=== PATIENT | female | born 1945 | race Caucasian/White ===

== ENCOUNTER 2016-11-21 08:21 | Outpatient (CLI) ==
[2016-09-12 13:08] VITALS: BMI 40.5
--- NOTE | 2016-11-22 12:20 | MAMMO ---
EXAM: Digital screening mammogram HISTORY: Screening COMPARISON: 01/17/2015 FINDINGS: Digital MLO and CC views of the right and left breast were performed. There are scatter ed fibroglandular densities. There are clustered left breast nodules seen on the CC view laterally approximately 9 cm from the nipple, not visible on previous examinations. There is no evidence for m ass, asymmetry, distortion, or suspicious calcifications in the right breast. IMPRESSION: 1. Left breast nodules. Diagnostic mammogram and possible ultrasound recommended for further evalu ation. 2. Negative right breast mammogram. BIRADS category 0, incomplete
== END 2016-11-21 08:22 | disposition home or self-care (01) ==
LOC: RAD 08:21
PROVIDERS: ATTEND Internal Medicine
DX: Z12.31 Encounter for screening mammogram for malignant neoplasm of breast (principal); R06.02 Shortness of breath

== ENCOUNTER 2016-11-27 08:04 | Outpatient (CLI) ==
[2016-09-12 13:08] VITALS: BMI 40.5
--- NOTE | 2016-11-27 10:03 | MAMMO ---
EXAM: Digital left diagnostic mammogram and ultrasound HISTORY: Nodular density seen in the lateral breast on CC image COMPARISON: Mammogram 11/21/2016 and 01/17/2059 FINDINGS: Two spot compression views of the the left breast were performed digitally and demonstrat e scattered fibroglandular breast density (25 - 50%). The previously identified nodular densities in the left lateral breast are redemonstrated on CC spot compression images and are not definitively i dentified on lateral view. Dedicated left breast diagnostic ultrasound were obtained. In the left breast at 1 o'clock 5-6 cm f rom the nipple there is a 0.3 x 0.2 cm hypoechoic ovoid nodule with no internal color Doppler flow. This demonstrates minimal internal echogenicities. In the left breast at 3 o'clock 6 cm from the n ipple there is a mildly complex hypoechoic lesion measuring 0.2 cm in diameter with immediate adjace nt hypoechoic ovoid complex lesion measuring 0.4 x 0.3 cm with no internal color Doppler flow in eit her lesion identified. There is an additional ovoid oblong hypoechoic structure measuring 0.5 x 0.3 x 0.7 cm with no internal color Doppler flow. IMPRESSION: Nodular densities seen on spot compression views in the lateral left breast in conjunct ion with a complex hypoechoic lesions with no internal color Doppler flow are suggestive of complex cysts. RECOMMENDATION: 6-month follow-up left diagnostic mammogram and potential ultrasound BIRADS category III: Probable benign findings
--- NOTE | 2016-11-27 10:08 | US ---
EXAM: Digital left diagnostic mammogram and ultrasound HISTORY: Nodular density seen in the lateral breast on CC image COMPARISON: Mammogram 11/21/2016 and 01/17/2059 FINDINGS: Two spot compression views of the left breast were performed digitally and demonstrate sc attered fibroglandular breast density (25 - 50%). The previously identified nodular densities in the left lateral breast are redemonstrated on CC spot compression images and are not definitively ident ified on lateral view. Dedicated left breast diagnostic ultrasound were obtained. In the left breast at 1 o'clock 5-6 cm f rom the nipple there is a 0.3 x 0.2 cm hypoechoic ovoid nodule with no internal color Doppler flow. This demonstrates minimal internal echogenicities. In the left breast at 3 o'clock 6 cm from the n ipple there is a mildly complex hypoechoic lesion measuring 0.2 cm in diameter with immediate adjace nt hypoechoic ovoid complex lesion measuring 0.4 x 0.3 cm with no internal color Doppler flow in eit her lesion identified. There is an additional ovoid oblong hypoechoic structure measuring 0.5 x 0.3 x 0.7 cm with no internal color Doppler flow. IMPRESSION: Nodular densities seen on spot compression views in the lateral left breast in conjunct ion with a complex hypoechoic lesions with no internal color Doppler flow are suggestive of complex cysts. RECOMMENDATION: 6-month follow-up left diagnostic mammogram and potential ultrasound BIRADS category III: Probable benign findings
== END 2016-11-27 08:05 | disposition home or self-care (01) ==
LOC: RAD 08:04
PROVIDERS: ATTEND Emergency Medicine
DX: R92.8 Other abnormal and inconclusive findings on diagnostic imaging of breast (principal); N63 Unspecified lump in breast

== ENCOUNTER 2017-02-14 12:39 | Outpatient (CLI) ==
[2016-09-12 13:08] VITALS: BMI 40.5
== END 2017-02-14 12:40 | disposition home or self-care (01) ==
LOC: CAR 12:39
PROVIDERS: ATTEND Internal Medicine
DX: R06.02 Shortness of breath (principal); J44.9 Chronic obstructive pulmonary disease, unspecified
CPT/HCPCS: 94761

== ENCOUNTER 2017-05-22 11:33 | Outpatient (CLI) ==
[2016-09-12 13:08] VITALS: BMI 40.5
[2017-05-22 12:49] LABS: BASOPHILS # (AUTO) 0.1 K/uL (0-0.2); BASOPHILS % (AUTO) 0.8 % (0.0-3.0); EOSINOPHILS # (AUTO) 0.1 K/ul (0.0-0.7); EOSINOPHILS % (AUTO) 1.5 % (0.0-7.0); HEMATOCRIT 41.2 % (37.0-47.0); IMMATURE GRANULOCYTE % (AUTO) 0.3 % (0.0-5.0); LYMPHOCYTES # (AUTO) 1.8 K/uL (0.60-3.4); LYMPHOCYTES % (AUTO) 27.2 (10.0-50.0); MEAN CORPUSCULAR VOLUME 94.3 fl (81.0-99.0); MONOCYTES # (AUTO) 0.5 K/uL (0.4-2.0); MONOCYTES % (AUTO) 7.1 (0-10); NEUTROPHILS # (AUTO) 4.2 K/ul (2.0-6.9); NEUTROPHILS % (AUTO) 63.1; PLATELET COUNT 193 10^3/uL (140-440); RED BLOOD COUNT 4.37 10^6/ul (4.20-5.40); WHITE BLOOD COUNT 6.65 K/ul (4.6-10.2)
[2017-05-22 13:23] LABS: ALBUMIN 3.7 g/dL (3.4-5.0); ALBUMIN/GLOBULIN RATIO 1.03; ANION GAP 16.9; BILIRUBIN,TOTAL 0.39 mg/dL (0.00-1.20); BUN/CREATININE RATIO 21.25; CALCIUM 9.6 mg/dL (8.2-10.2); CHOL/HDL RATIO 3.3 (4.5-5.5); CREATININE 0.8 mg/dL (0.60-1.30); POTASSIUM 3.9 mmol/L (3.5-5.10); TOTAL PROTEIN 7.3 g/dL (5.8-8.1)
== END 2017-05-22 11:34 | disposition home or self-care (01) ==
LOC: LAB 11:33
PROVIDERS: ATTEND Emergency Medicine
DX: E78.5 Hyperlipidemia, unspecified (principal)
CPT/HCPCS: 36415; 80053; 80061; 84443; 85025

== ENCOUNTER 2017-06-16 08:36 | Outpatient (CLI) ==
[2016-09-12 13:08] VITALS: BMI 40.5
--- NOTE | 2017-06-16 09:50 | US ---
EXAM: Left breast ultrasound. History: Follow-up left breast nodules. Comparison: Left breast ultrasound 11/27/2016 Technique: Multiple sonographic images through the left breast were obtained. Color duplex Doppler was used to interrogate vascular flow. Findings: Stable 3 mm benign complicated cyst at 1 o'clock. A few benign 3 mm cysts are again seen at 3 o'clock. There are no suspicious masses. Impression: Benign left breast cysts. There is no sonographic evidence for malignancy. Recommend return to routine screening mammography schedule. BIRADS 2
--- NOTE | 2017-06-16 09:52 | MAMMO ---
EXAM: Left digital diagnostic mammogram History: Follow-up left breast nodules. Comparison: Left diagnostic mammogram 11/27/2016 Findings: MLO and CC views of bilateral breasts demonstrate scattered fibroglandular breast parench yma. Stable benign small nodular density at 1 o'clock and 3 o'clock. No developing masses. Stable benign left breast calcifications. Impression: No change in the indeterminate left breast nodular densities. Recommend further evalua tion with left breast ultrasound. BIRADS 0
== END 2017-06-16 08:37 | disposition home or self-care (01) ==
LOC: RAD 08:36
PROVIDERS: ATTEND Emergency Medicine
DX: R92.8 Other abnormal and inconclusive findings on diagnostic imaging of breast (principal)

== ENCOUNTER 2017-09-30 13:07 | Outpatient (CLI) ==
[2016-09-12 13:08] VITALS: BMI 40.5
[2017-09-30 13:20] LABS: BASOPHILS % (AUTO) 0.5 % (0.0-3.0); EOSINOPHILS # (AUTO) 0.1 K/ul (0.0-0.7); EOSINOPHILS % (AUTO) 1.7 % (0.0-7.0); HEMATOCRIT 41.8 % (37.0-47.0); HEMOGLOBIN 14.1 g/dl (12.0-16.0); IMMATURE GRANULOCYTE % (AUTO) 0.3 % (0.0-5.0); LYMPHOCYTES # (AUTO) 1.7 K/uL (0.60-3.4); LYMPHOCYTES % (AUTO) 25.7 (10.0-50.0); MEAN CORPUSCULAR HEMOGLOBIN 31.9 pg (27.0-31.0); MEAN CORPUSCULAR HGB CONC 33.7 (31.8-35.4); MEAN CORPUSCULAR VOLUME 94.6 fl (81.0-99.0); MONOCYTES # (AUTO) 0.5 K/uL (0.4-2.0); MONOCYTES % (AUTO) 7.3 (0-10); NEUTROPHILS # (AUTO) 4.2 K/ul (2.0-6.9); NEUTROPHILS % (AUTO) 64.5; PLATELET COUNT 222 10^3/uL (140-440); RED BLOOD COUNT 4.42 10^6/ul (4.20-5.40); WHITE BLOOD COUNT 6.47 K/ul (4.6-10.2)
[2017-09-30 13:59] LABS: ALBUMIN 3.5 g/dL (3.4-5.0); ALBUMIN/GLOBULIN RATIO 0.92; ANION GAP 13.9; BILIRUBIN,TOTAL 0.4 mg/dL (0.00-1.20); BUN/CREATININE RATIO 22.22; CALCIUM 9.8 mg/dL (8.2-10.2); CHOL/HDL RATIO 3.6 (4.5-5.5); CREATININE 0.81 mg/dL (0.60-1.30); POTASSIUM 3.9 mmol/L (3.5-5.10); TOTAL PROTEIN 7.3 g/dL (5.8-8.1)
== END 2017-09-30 13:08 | disposition home or self-care (01) ==
LOC: LAB 13:07
PROVIDERS: ATTEND Emergency Medicine
DX: E78.5 Hyperlipidemia, unspecified (principal); E66.9 Obesity, unspecified; M17.0 Bilateral primary osteoarthritis of knee; M47.26 Other spondylosis with radiculopathy, lumbar region
CPT/HCPCS: 36415; 80053; 80061; 84443; 85025

== ENCOUNTER 2018-03-03 11:29 | Emergency (ER) | payer OTHER ==
[2018-03-03 11:37] VITALS: BP 152/71; TEMP 98.8; BMI 42.4
--- NOTE | 2018-03-03 13:32 | ED.PDOC ---
General ED Provider: Dr. KIAH PHELAN Chief Complaint: Shortness of Air Stated Complaint: Onset yesterday evening. Progressively worsened. States cough /productive white sputum Time Seen by Physician: 11:45 Mode of Arrival: Walk-In Information Source: Patient, Family Exam Limitations: No limitations [facility] T[facility] Documentation Reviewed and Agree: Yes Reviewed sepsis parameters & appropriate labs ordered?: Yes System Inflammatory Response Syndrome: Not Applicable Sepsis Protocol: For patient's 13 years and over: Temp is 96.8 and below OR 101 and greater Pulse >90 BPM Resp >20/minute Acutely Altered Mental Status Are patient's symptoms suggestive of a new infection, such as: -Pneumonia -Skin, Soft Tissue -Endocarditis -UTI -Bone, Joint Infection -Implantable Device -Acute Abdominal Infection -Wound Infection -Meningitis -Blood Stream Catheter Infection -Unknown System Inflammatory Response Syndrome: Not Applicable Respiratory Complaint Exam - Shortness of Air Complaint/Exam Symptoms Are: Still present Timing: Intermittent Initial Severity: Moderate Current Severity: Mild Character: Reports: Dyspnea on exertion Aggravating: Reports: Deep breaths, Recumbent position Alleviating: Reports: Bronchodilators, OTC Meds, Upright position Associated Signs and Symptoms: Reports: Cough, Wheezing Pulmonary Embolism Risk Factors: Reports: None Cardiac Risk Factors: Reports: None Pseudomonas Risk Factors: Reports: None Tuberculosis Risk Factors: Reports: None Home Oxygen Use: Yes Recent Stress Test: No Recent Echo/LV Function: No Respiratory Distress: Mild Stridor Present: No Tracheal Deviation: No Subcutaneous Emphysema: No Review of Systems - Review Of Systems Constitutional: Reports: No symptoms Eyes: Reports: No symptoms Ears, Nose, Mouth, Throat: Reports: No symptoms Respiratory: Reports: Cough, Short of air, Wheezing Cardiac: Reports: No symptoms GI: Reports: No symptoms : Reports: No symptoms Musculoskeletal: Reports: No symptoms Skin: Reports: No symptoms Neurological: Reports: No symptoms Endocrine: Reports: No symptoms Hematologic/Lymphatic: Reports: No symptoms All Other Systems: Reviewed and Negative Past Medical History - Past Medical History Previously Healthy: No Endocrine: Reports: None Cardiovascular: Reports: Hypertension Respiratory: Reports: COPD Hematological: Reports: None Gastrointestinal: Reports: GERD Genitourinary: Reports: None Neuro/Psych: Reports: None, Unknown Musculoskeletal: Reports: None Cancer: Reports: None Last Menstrual Period: hysterectomy - Surgical History General Surgical History: Reports: Unknown - Family History Family History: Reports: Unknown - Social History Smoking Status: Current every day smoker, Light tobacco smoker Hx Substance Use: No Alcohol Screening: None Physical Exam - Physical Exam Appearance: Ill-appearing, No pain distress, Well-nourished Ill-appearing: Moderate Pain Distress: None Eyes: KONSTANTIN, EOMI, Conjunctiva clear ENT: Ears normal, Nose normal, Oropharynx normal Respiratory: Airway patent, Breath sounds equal, Breath sounds diminished, Wheezes Cardiovascular: RRR, Pulses normal, No rub, No murmur GI/: Soft, Nontender, No masses, Bowel sounds normal, No Organomegaly Musculoskeletal: Normal strength, ROM intact, No edema, No calf tenderness Skin: Warm, Dry, Normal color Neurological: Sensation intact, Motor intact, Reflexes intact, Cranial nerves intact, Alert, Oriented Psychiatric: Affect appropriate, Mood appropriate Interpretation - Radiology Interpretation Radiology Interpretation By: Radiologist Exam Interpreted: Portable CXR Xray Comments: COPD Critical Care Note - Critical Care Note Total Time (mins): 0 Course - Course Hematology/Chemistry: 03/03/18 13:50 03/03/18 13:50 Orders, Labs, Meds: Lab Review 03/03/18 03/03/18 13:50 13:50 WBC 9.34 RBC 4.59 Hgb 14.6 Hct 44.0 MCV 95.9 MCH 31.8 H MCHC 33.2 RDW Coeff of Yara 13.2 Plt Count 222 Immature Gran % (Auto) 0.6 Neut % (Auto) 68.3 Lymph % (Auto) 22.4 [place] % (Auto) 7.2 Eos % (Auto) 1.1 Baso % (Auto) 0.4 Immature Gran # (Auto) 0.1 Neut # (Auto) 6.4 Lymph # (Auto) 2.1 [place] # (Auto) 0.7 Eos # (Auto) 0.1 Baso # (Auto) 0.0 Sodium 136 Potassium 4.0 Chloride 98 Carbon Dioxide 27 Anion Gap 15.0 BUN 14 Creatinine 0.83 Estimated GFR (MDRD) 67.00 BUN/Creatinine Ratio 16.86 Glucose 88 Calcium 10.3 H Total Bilirubin 0.6 AST 14 L ALT 12 Alkaline Phosphatase 76 Total Protein 7.5 Albumin 3.5 Globulin 4.0 Albumin/Globulin Ratio 0.88 Orders Category Date Time Status CBC W/ AUTO DIFF Stat LAB 03/03/18 13:50 Completed CMP [COMPREHENSIVE METABOLIC PANEL] Stat LAB 03/03/18 13:50 Completed CHEST, 2 VIEWS PA & LAT Stat RADS 03/03/18 13:30 Completed Vital Signs: Temp Pulse Resp BP Pulse Ox 03/03/18 12:45 95 03/03/18 11:30 98.8 F 99 H 20 152/71 H 93 L Departure - Departure Time of Disposition: 15:05 Disposition: HOME SELF-CARE Discharge Problem: COPD (chronic obstructive pulmonary disease), Tobacco abuse Instructions: How to Stop Smoking (ED), COPD (Chronic Obstructive Pulmonary Disease) (ED) Condition: Fair Pt referred to PMD for follow-up: Yes (Dr Das) IPMP verified?: No Additional Instructions: Remain on existing meds Discontinue tobacco products Allergies/Adverse Reactions: Allergies codeine Adverse Reaction (Verified 03/03/18 11:38) Home Medications: Ambulatory Orders Albuterol Sulfate 0.63 mg IH PRN 04/24/17 Calcium Carb, Citrate/Vit D3 [Calcium + D3 ER Tablet] 1 each PO DAILY 03/03/18 Carvedilol [Coreg] 12.5 mg PO DAILY 03/03/18 Citalopram Hydrobromide [Celexa] 20 mg PO DAILY 03/03/18 Fluticasone Propionate [Flonase] 1 spray NS BID 03/03/18 Fluticasone/Vilanterol [Breo Ellipta Inhaler] 1 puff IH DAILY 03/03/18 Hydrocodone/Acetaminophen [Hydrocodon-Acetaminophn 10-325] 1 each PO DIRECTED PRN 03/03/18 Lorazepam [Ativan] 1 mg PO DIRECTED PRN 03/03/18 Lubiprostone [Amitiza] 8 mcg PO DAILY 03/03/18 Montelukast Sodium [Singulair] 10 mg PO BEDTIME 03/03/18 Olopatadine HCl [Pataday] 2.5 ml OP DAILY 03/03/18 [place]-3/Dha/Epa/Fish Oil [Fish Oil 1,000 mg Softgel] 1 each PO DAILY 03/03/18 Oxybutynin Chloride [Ditropan Xl] 10 mg PO DAILY 03/03/18 Pantoprazole Sodium [Protonix] 40 mg PO DAILY 03/03/18 Potassium Chloride [K-Dur] 20 meq PO DAILY 03/03/18 Simvastatin [Zocor] 20 mg PO DAILY 03/03/18 Sucralfate [Carafate] 1 gm PO QID 03/03/18 Disposition Discussed With: Patient, Family
--- NOTE | 2018-03-03 14:30 | DI ---
EXAM: Chest two views HISTORY: Shortness of breath COMPARISON: 09/12/2016 TECHNIQUE: Two views of the chest were performed FINDINGS: The lungs are clear. Lungs are hyperinflated. There is no pleural effusion or pneumothorax . The heart is normal in size. The mediastinal contour is normal, noting atherosclerosis. There ar e no acute abnormalities of the bones. IMPRESSION: 1. No acute cardiopulmonary process. 2. Hyperinflated lungs may suggest chronic obstructive pulmonary disease.
== END 2018-03-03 15:20 | disposition home or self-care (01) ==
LOC: ED 11:29
DX: J44.9 Chronic obstructive pulmonary disease, unspecified (principal); R06.02 Shortness of breath; I10 Essential (primary) hypertension; F17.210 Nicotine dependence, cigarettes, uncomplicated; Z79.899 Other long term (current) drug therapy
CPT/HCPCS: 36415; 80053; 85025; 99283

== ENCOUNTER 2018-04-16 08:06 | Outpatient (CLI) ==
--- NOTE | 2018-04-17 08:41 | MAMMO ---
EXAM: Digital screening mammogram with tomosynthesis HISTORY: Screening COMPARISON: 11/21/2016 FINDINGS: Digital MLO and CC views of the right and left breast were performed. Tomosynthesis was performed. Computer aided detection was utilized. There are scattered fibroglandular densities. Th ere is no evidence for mass, asymmetry, distortion, or suspicious calcifications in either breast. IMPRESSION: 1. No evidence of malignancy in the right or left breast. 2. Annual screening mammogram is recommended in one year. BIRADS category 1, negative examination
== END 2018-04-16 08:07 | disposition home or self-care (01) ==
LOC: RAD 08:06
PROVIDERS: ATTEND Emergency Medicine
DX: Z12.31 Encounter for screening mammogram for malignant neoplasm of breast (principal); R92.8 Other abnormal and inconclusive findings on diagnostic imaging of breast
CPT/HCPCS: 77067

== ENCOUNTER 2018-06-23 15:23 | Outpatient (CLI) | payer OTHER ==
--- NOTE | 2018-06-23 16:49 | DI ---
EXAM: Four views of the right knee. History: Right knee pain. Findings: No acute fracture or dislocation. Severe narrowing of the medial compartment with margina l sclerosis and osteophyte formation. Mild to moderate narrowing of the lateral and patellofemoral c ompartments. Impression: 1. No acute osseous abnormality. 2. Tricompartmental osteoarthritis that is severe in the medial compartment.
== END 2018-06-23 15:24 | disposition home or self-care (01) ==
LOC: RAD 15:23
PROVIDERS: ATTEND Emergency Medicine
DX: E78.5 Hyperlipidemia, unspecified (principal); E66.9 Obesity, unspecified; J44.9 Chronic obstructive pulmonary disease, unspecified; M47.26 Other spondylosis with radiculopathy, lumbar region; F41.1 Generalized anxiety disorder; M17.0 Bilateral primary osteoarthritis of knee
CPT/HCPCS: 36415; 80053; 80061; 84443; 85025

== ENCOUNTER 2018-11-23 06:29 | Day surgery (SDC) | payer OTHER ==
[2018-11-23] MEDS ORDERED: LIDOCAINE 1% 20 ML MDV ID ONE (07:15)
[2018-11-23 07:27] VITALS: TEMP 97.2
[2018-11-23] MEDS ORDERED: LIDOCAINE 1% 20 ML MDV ID STA (07:28)
[2018-11-23] MEDS ORDERED: ALBUTEROL 0.083% NEB NEB STA (07:28)
[2018-11-23] MEDS ORDERED: DIPRIVAN 20 ML VIAL IVP ONE (08:10)
[2018-11-23] MEDS ORDERED: VERSED ONE (08:10)
[2018-11-23 09:31] VITALS: BP 132/66
--- NOTE | 2018-11-24 08:06 | OP ---
PROCEDURE: COLONOSCOPY TO THE CECUM WITH SNARE POLYPECTOMY. ENDOSCOPIST: Trudi HAIRSTON M.D. INDICATION: HISTORY OF POLYPS INSTRUMENT: [id number]-[id number]. MEDICATION: PER ANESTHESIA. PROCEDURE: The patient was positioned for colonoscopy. The digital rectal exam was negative. The colonoscope was inserted through the anus and advanced to the cecum. Difficulty tortuous exam taking significant amount of effort to reach the cecum with external pressure and position change. [place] Bowel Prep Score 2+2+2=6. In the cecum a small polyp is removed using snare cautery. 1cm polyp in the ascending colon removed using snare cautery. A small polyp in the small proximal transverse colon removed using snare cautery. A small polyp in the distal transverse colon removed using snare cautery. Small polyp at 80cm removed using snare cautery. A small polyp in the rectum removed using snare cautery. Diverticulosis also noted in the left colon. The retroflex exam was otherwise negative. Withdraw time 26 minutes. PLAN: 1. Suggest repeat colonoscopy in 3 years. CC: Kathy HUMPHRIES
== END 2018-11-23 09:30 | disposition home or self-care (01) ==
LOC: SURG 06:29
PROVIDERS: ATTEND Internal Medicine Gastroenterology
DX: Z86.010 Personal history of colon polyps (principal); D12.2 Benign neoplasm of ascending colon; D12.0 Benign neoplasm of cecum; D12.4 Benign neoplasm of descending colon; D12.3 Benign neoplasm of transverse colon; K63.5 Polyp of colon; D12.7 Benign neoplasm of rectosigmoid junction; K57.90 Diverticulosis of intestine, part unspecified, without perforation or abscess without bleeding
CPT/HCPCS: 94640

== ENCOUNTER 2018-12-14 09:17 | Emergency (ER) ==
[2018-12-14 09:20] VITALS: BP 184/89; TEMP 99.7; BMI 43.2
[2018-12-14] MEDS: DUONEB NEB STA (10:24)
--- NOTE | 2018-12-14 11:21 | ED.PDOC ---
General ED Provider: Dr. MICHAELLE CLINE Chief Complaint: Cough Stated Complaint: flu like symptoms Time Seen by Physician: 09:19 Mode of Arrival: Walk-In Information Source: Patient Exam Limitations: No limitations Primary Care Provider: RADU CORBETT Nursing and Triage Documentation Reviewed and Agree: Yes Does patient meet sepsis criteria?: No System Inflammatory Response Syndrome: Not Applicable Sepsis Protocol: For patient's 13 years and over: Temp is 96.8 and below OR 101 and greater Pulse >90 BPM Resp >20/minute Acutely Altered Mental Status Are patient's symptoms suggestive of a new infection, such as: -Pneumonia -Skin, Soft Tissue -Endocarditis -UTI -Bone, Joint Infection -Implantable Device -Acute Abdominal Infection -Wound Infection -Meningitis -Blood Stream Catheter Infection -Unknown EENT Complaint Exam - Throat Complaint/Exam Symptoms Are: Still present Timimg: Intermittent Initial Severity: Mild Current Severity: None Aggravating: Reports: None Alleviating: Reports: None Associated Signs and Symptoms: Reports: Chills, Cough, Nasal congestion. Denies : Fever, Dysphagia, Drooling, Foreign body sensation, Wheezing, Hoarseness, Sinus discomfort, Difficulty breathing, Lethargy, Irritability, Decreased activity, Vomiting, Diarrhea, Decreased hearing, Ear drainage Uvula Midline: Yes Shakira-tonsillar Fluctuence: No Scarlatinaform Rash Present: No Lesions: Absent: Lip, Gums, Tongue, Buccal Mucosa, Pharynx Exanthem: Absent: Lip, Gums, Tongue, Buccal Mucosa, Pharynx Vesicles: Absent: Lip, Gums, Tongue, Buccal Mucosa, Pharynx Stridor Present: No Sinus Tenderness Present: No Tonsillar Hypertrophy Present: No Tonsillar Exudate Present: No Shakira-tonsillar Swelling Present: No Adenopathy Present: No Splenomegaly Present: No Differential Diagnoses: Mononucleosis, URI Review of Systems - Review Of Systems Constitutional: Reports: Chills Eyes: Reports: No symptoms Ears, Nose, Mouth, Throat: Reports: No symptoms Respiratory: Reports: Cough Cardiac: Reports: No symptoms GI: Reports: No symptoms : Reports: No symptoms Musculoskeletal: Reports: No symptoms Skin: Reports: No symptoms Neurological: Reports: No symptoms Endocrine: Reports: No symptoms Hematologic/Lymphatic: Reports: No symptoms All Other Systems: Reviewed and Negative Past Medical History - Past Medical History Previously Healthy: No Endocrine: Reports: None Cardiovascular: Reports: Hypertension Respiratory: Reports: COPD Hematological: Reports: None Gastrointestinal: Reports: GERD Genitourinary: Reports: None Neuro/Psych: Reports: None, Unknown Musculoskeletal: Reports: None Cancer: Reports: None Last Menstrual Period: none - Surgical History General Surgical History: Reports: Unknown - Family History Family History: Reports: Unknown - Social History Smoking Status: Current every day smoker, Light tobacco smoker Hx Substance Use: No Alcohol Screening: None Physical Exam - Physical Exam Appearance: Well-appearing, No pain distress, Well-nourished Eyes: KONSTANTIN, EOMI, Conjunctiva clear ENT: Ears normal, Nose normal, Oropharynx normal Respiratory: Airway patent, Breath sounds clear, Breath sounds equal, Respirations nonlabored Cardiovascular: RRR, Pulses normal, No rub, No murmur GI/: Soft, Nontender, No masses, Bowel sounds normal, No Organomegaly Musculoskeletal: Normal strength, ROM intact, No edema, No calf tenderness Skin: Warm, Dry, Normal color Neurological: Sensation intact, Motor intact, Reflexes intact, Cranial nerves intact, Alert, Oriented Psychiatric: Affect appropriate, Mood appropriate Interpretation - Paraplanner Rate: Normal Rhythm: Sinus Ectopy: None - EKG Interpretation Rate: Normal Rhythm: Sinus Ectopy: None [place]: NL ST Segment: Normal Critical Care Note - Critical Care Note Total Time (mins): 0 Course - Course Hematology/Chemistry: 12/14/18 10:05 12/14/18 10:05 Orders, Labs, Meds: Lab Review 12/14/18 12/14/18 12/14/18 09:30 09:58 10:05 WBC 5.41 RBC 4.16 L Hgb 13.0 Hct 39.8 MCV 95.7 MCH 31.3 H MCHC 32.7 RDW Coeff of Yara 13.5 Plt Count 145 Immature Gran % (Auto) 0.4 Neut % (Auto) 66.8 Lymph % (Auto) 19.8 [place] % (Auto) 12.0 H Eos % (Auto) 0.6 Baso % (Auto) 0.4 Immature Gran # (Auto) 0.0 Neut # (Auto) 3.6 Lymph # (Auto) 1.1 [place] # (Auto) 0.7 Eos # (Auto) 0.0 Baso # (Auto) 0.0 Puncture Site Rrad O2 Saturation 97.0 ABG pH 7.444 ABG pCO2 36.4 ABG pO2 86.0 ABG HCO3 24.9 ABG Total CO2 26 ABG Base Excess 1 Imtiaz Test + O2 Delivery Device Nc Oxygen Liter Flow 2.00 Sodium Potassium Chloride Carbon Dioxide Anion Gap BUN Creatinine Estimated GFR (MDRD) BUN/Creatinine Ratio Glucose Lactic Acid Calcium Total Bilirubin AST ALT Alkaline Phosphatase Total Protein Albumin Globulin Albumin/Globulin Ratio Procalcitonin Influ A Molecular Assay Positive by naat H Influ B Molecular Assay Negative by naat 12/14/18 12/14/18 12/14/18 10:05 10:05 10:05 WBC RBC Hgb Hct MCV MCH MCHC RDW Coeff of Yara Plt Count Immature Gran % (Auto) Neut % (Auto) Lymph % (Auto) [place] % (Auto) Eos % (Auto) Baso % (Auto) Immature Gran # (Auto) Neut # (Auto) Lymph # (Auto) [place] # (Auto) Eos # (Auto) Baso # (Auto) Puncture Site O2 Saturation ABG pH ABG pCO2 ABG pO2 ABG HCO3 ABG Total CO2 ABG Base Excess Imtiaz Test O2 Delivery Device Oxygen Liter Flow Sodium 137.7 Potassium 3.66 Chloride 102.1 Carbon Dioxide 28.9 Anion Gap 10.36 BUN 13.1 Creatinine 0.88 Estimated GFR (MDRD) 63.00 BUN/Creatinine Ratio 14.88 Glucose 105.1 Lactic Acid 0.62 L Calcium 8.64 Total Bilirubin 0.29 AST 30.3 ALT 32.4 Alkaline Phosphatase 78.1 Total Protein 6.89 Albumin 3.78 Globulin 3.11 Albumin/Globulin Ratio 1.21 Procalcitonin < 0.05 Influ A Molecular Assay Influ B Molecular Assay Orders Category Date Time Status ABG DRAW REQUEST Stat CARDIO 12/14/18 09:58 Ordered EKG-(ED ONLY) Stat CARDIO 12/14/18 09:59 Completed NEBULIZER TREATMENT Stat CARDIO 12/14/18 10:00 Completed ABG Stat LAB 12/14/18 09:58 Ordered BLOOD CULTURE Stat LAB 12/14/18 09:57 Ordered CBC W/ AUTO DIFF Stat LAB 12/14/18 09:55 Ordered COMPREHENSIVE METABOLIC PANEL Stat LAB 12/14/18 09:56 Ordered FLU A/B MOLECULAR Stat LAB 12/14/18 09:30 Completed LACTIC ACID Stat LAB 12/14/18 09:57 Ordered PROCALCITONIN Stat LAB 12/14/18 09:57 Ordered RAPID STREP SCREEN [MOLECULAR GROUP A STREP] Stat LAB 12/14/18 09:30 Completed Ipratropium/Albuterol Neb [Duoneb] MEDS 12/14/18 10:00 Discontinued 1 vial NEB ONCE STA CT CHEST W/O CONTRAST Stat RADS 12/14/18 09:56 Ordered Medications Discontinued Medications Generic Name Dose Route Start Last Admin Trade Name Daniel PRN Reason Stop Dose Admin Albuterol/Ipratropium 1 vial 12/14/18 10:00 12/14/18 10:24 Duoneb NEB 12/14/18 10:01 1 vial ONCE STA Administration Vital Signs: Temp Pulse Resp BP Pulse Ox 12/14/18 09:17 99.7 F H 98 H 24 184/89 H 94 L Departure - Departure Time of Disposition: 11:21 Disposition: HOME SELF-CARE Discharge Problem: Cough, Influenza A Instructions: Influenza (ED) Condition: Good Pt referred to PMD for follow-up: Yes IPMP verified?: No Additional Instructions: Please call your Family Physician as soon as possible to schedule a follow-up appointment. Allergies/Adverse Reactions: Allergies codeine Adverse Reaction (Verified 12/14/18 09:20) Home Medications: Ambulatory Orders Calcium Carb, Citrate/Vit D3 [Calcium + D3 ER Tablet] 1 each PO DAILY 03/03/18 Hydrocodone/Acetaminophen [Hydrocodon-Acetaminophn 10-325] 1 each PO DIRECTED PRN 03/03/18 Olopatadine HCl [Pataday] 1 drop OP BID 03/03/18 [place]-3/Dha/Epa/Fish Oil [Fish Oil 1,000 mg Softgel] 2 each PO DAILY 03/03/18 Lorazepam [Ativan] 1 mg PO DAILY 12/14/18 Polyethylene Glycol 3350 [Miralax] 17 gm PO DAILY PRN 12/14/18
--- NOTE | 2018-12-14 11:27 | CT ---
EXAM: CT of the chest without contrast History: Cough. Comparison: Chest radiograph 03/03/2018 Technique: Multiplanar CT images through the thorax were obtained without the administration of IV c ontrast Findings: Heart size is upper limits of normal. Coronary calcifications. No thoracic aortic aneury sm. No axillary lymphadenopathy. No pathologically enlarged mediastinal lymph nodes. Evaluation fo r hilar lymph nodes is limited due to the lack of contrast administration. Calcified granulomas are seen within the thorax. Mild diffuse bronchial wall thickening and scattered areas of subsegmental a telectasis. No consolidated pneumonia. No pleural fluid and no pneumothorax. No suspicious lung ma sses or lung nodules. Within the visualized upper abdomen, no acute findings. No acute osseous abnormalities. Degenerativ e changes of the spine. Impression: 1. Mild diffuse bronchial wall thickening but no consolidated pneumonia. 2. Coronary artery disease and borderline cardiomegaly
== END 2018-12-14 11:37 | disposition home or self-care (01) ==
LOC: ED 09:17
DX: R05 Cough (principal); R09.81 Nasal congestion; J11.1 Influenza due to unidentified influenza virus with other respiratory manifestations
CPT/HCPCS: 36415; 80053; 82803; 83605; 84145; 85025; 87040; 87070; 87077; 87186; 87502; 87651; 93005; 93010; 94640; 99283

== ENCOUNTER 2018-12-22 16:08 | Emergency (ER) ==
[2018-12-22 16:15] VITALS: BP 154/94; TEMP 97.2; BMI 42.1
[2018-12-22] MEDS ORDERED: XOPENEX 1.25 MG NEB STA (16:53)
[2018-12-22] MEDS ORDERED: DECADRON 4 MG/ML SDV IM STA (16:55)
--- NOTE | 2018-12-22 16:57 | ED.PDOC ---
General ED Provider: Dr. KIAH PHELAN Chief Complaint: Cough Stated Complaint: Cough, congestion and rt ear pain. Recovering from flu but having nasal drainage with green colored sputum Time Seen by Physician: 16:10 Information Source: Patient Primary Care Provider: RADU CORBETT Nursing and Triage Documentation Reviewed and Agree: Yes Does patient meet sepsis criteria?: No System Inflammatory Response Syndrome: Not Applicable Sepsis Protocol: For patient's 13 years and over: Temp is 96.8 and below OR 101 and greater Pulse >90 BPM Resp >20/minute Acutely Altered Mental Status Are patient's symptoms suggestive of a new infection, such as: -Pneumonia -Skin, Soft Tissue -Endocarditis -UTI -Bone, Joint Infection -Implantable Device -Acute Abdominal Infection -Wound Infection -Meningitis -Blood Stream Catheter Infection -Unknown Review of Systems - Review Of Systems Constitutional: Reports: Malaise, Loss of appetite Eyes: Reports: No symptoms Ears, Nose, Mouth, Throat: Reports: Ear pain (rt maxillary pain), Throat pain Respiratory: Reports: Cough, Short of air Cardiac: Reports: No symptoms GI: Reports: No symptoms : Reports: No symptoms Musculoskeletal: Reports: No symptoms Skin: Reports: No symptoms Neurological: Reports: No symptoms All Other Systems: Reviewed and Negative Past Medical History - Past Medical History Previously Healthy: No Endocrine: Reports: None Cardiovascular: Reports: Hypertension Respiratory: Reports: COPD Hematological: Reports: None Gastrointestinal: Reports: GERD Genitourinary: Reports: None Neuro/Psych: Reports: None, Unknown Musculoskeletal: Reports: None Cancer: Reports: None Last Menstrual Period: menopausal - Surgical History General Surgical History: Reports: Unknown - Family History Family History: Reports: Unknown - Social History Smoking Status: Current every day smoker, Light tobacco smoker Hx Substance Use: No Alcohol Screening: None - Immunizations Tetanus Shot up to Date: Yes Physical Exam - Physical Exam Appearance: Ill-appearing, Obese Ill-appearing: Moderate Pain Distress: Mild Eyes: KONSTANTIN, EOMI, Conjunctiva clear ENT: Ears normal (rt eac occluded and tender), Nose normal, Oropharynx normal, Rhinorrhea, Erythema Respiratory: Airway patent, Breath sounds clear, Breath sounds equal, Respirations nonlabored Cardiovascular: RRR, Pulses normal, No rub, No murmur GI/: Soft, Nontender, No masses, Bowel sounds normal, No Organomegaly Musculoskeletal: Normal strength, ROM intact, No edema, No calf tenderness Skin: Warm, Dry, Normal color Neurological: Sensation intact, Motor intact, Reflexes intact, Cranial nerves intact, Alert, Oriented Psychiatric: Affect appropriate, Mood appropriate Critical Care Note - Critical Care Note Total Time (mins): 60 Course - Course Hematology/Chemistry: 12/22/18 17:01 12/22/18 17:01 Orders, Labs, Meds: Lab Review 12/22/18 12/22/18 17:01 17:01 WBC 8.82 RBC 4.29 Hgb 13.3 Hct 40.7 MCV 94.9 MCH 31.0 MCHC 32.7 RDW Coeff of Yara 13.2 Plt Count 227 Immature Gran % (Auto) 1.0 Neut % (Auto) 62.7 Lymph % (Auto) 26.0 [place] % (Auto) 8.8 Eos % (Auto) 1.2 Baso % (Auto) 0.3 Immature Gran # (Auto) 0.1 Neut # (Auto) 5.5 Lymph # (Auto) 2.3 [place] # (Auto) 0.8 Eos # (Auto) 0.1 Baso # (Auto) 0.0 Sodium 138.0 Potassium 3.78 Chloride 104.6 Carbon Dioxide 28.2 Anion Gap 8.98 BUN 15.7 Creatinine 0.74 Estimated GFR (MDRD) 77.00 BUN/Creatinine Ratio 21.21 Glucose 92.9 Calcium 9.36 Total Bilirubin 0.40 AST 24.8 ALT 13.3 Alkaline Phosphatase 75.0 Total Protein 7.11 Albumin 3.83 Globulin 3.28 Albumin/Globulin Ratio 1.16 Orders Category Date Time Status NEBULIZER TREATMENT Stat CARDIO 12/22/18 16:54 Completed CBC W/ AUTO DIFF Stat LAB 12/22/18 17:01 Completed CMP [COMPREHENSIVE METABOLIC PANEL] Stat LAB 12/22/18 17:01 Completed Dexamethasone 4 mg/ml Inj [Decadron 4 mg/ml Sdv] MEDS 12/22/18 16:55 Discontinued 4 mg IM ONCE STA Levalbuterol HCl [Xopenex 1.25 mg] MEDS 12/22/18 16:53 Discontinued 1 vial NEB ONCE STA CHEST, 2 VIEWS PA & LAT Stat RADS 12/22/18 16:[address] SINUSES W/O CONTRAST Stat RADS 12/22/18 16:51 Completed Medications Discontinued Medications Generic Name Dose Route Start Last Admin Trade Name Freq PRN Reason Stop Dose Admin Dexamethasone Sodium Phosphate 4 mg 12/22/18 16:55 12/22/18 17:02 Decadron 4 Mg/Ml Sdv IM 12/22/18 16:56 4 mg ONCE STA Administration Levalbuterol HCl 1 vial 12/22/18 16:53 12/22/18 17:24 Xopenex 1.25 Mg NEB 12/22/18 16:54 1 vial ONCE STA Administration Vital Signs: Temp Pulse Resp BP Pulse Ox 12/22/18 17:34 96 12/22/18 17:05 95 12/22/18 16:08 97.2 F L 77 20 154/94 H 93 L Departure - Departure Time of Disposition: 18:00 Disposition: HOME SELF-CARE Discharge Problem: Acute sinusitis, COPD (chronic obstructive pulmonary disease) Condition: Good Pt referred to PMD for follow-up: Yes (1 week) IPMP verified?: No Additional Instructions: Remain on current meds and prescribed meds Follow up pcp 1 wk Allergies/Adverse Reactions: Allergies codeine Adverse Reaction (Verified 12/14/18 09:20) Home Medications: Ambulatory Orders Calcium Carb, Citrate/Vit D3 [Calcium + D3 ER Tablet] 1 each PO DAILY 03/03/18 Hydrocodone/Acetaminophen [Hydrocodon-Acetaminophn 10-325] 1 each PO DIRECTED PRN 03/03/18 Olopatadine HCl [Pataday] 1 drop OP BID 03/03/18 [place]-3/Dha/Epa/Fish Oil [Fish Oil 1,000 mg Softgel] 2 each PO DAILY 03/03/18 Lorazepam [Ativan] 1 mg PO DAILY 12/14/18 Polyethylene Glycol 3350 [Miralax] 17 gm PO DAILY PRN 12/14/18 Amoxicillin/Potassium Clav [Augmentin 875-125 mg Tab] 1 tab PO Q12HR #20 tablet 12/22/18 Guaifenesin [Mucinex] 600 mg PO BID #20 tab.er.12h 12/22/18 Prednisone 10 mg PO DAILY 8 Days #20 tablet 12/22/18 Disposition Discussed With: Patient, Family
--- NOTE | 2018-12-22 17:51 | DI ---
EXAM: Two-view chest HISTORY: Cough COMPARISON: Two-view chest 03/03/2018 FINDINGS: The heart is top normal in size. Atherosclerotic changes are seen involving the aortic ar ch.. The lungs are hyperinflated with minimal bibasilar atelectasis. IMPRESSION: Cardiac silhouette is top normal in size. Bilateral hyperinflation with bibasilar atelectasis
--- NOTE | 2018-12-22 17:53 | CT ---
EXAM: CT sinus without contrast HISTORY: Drainage COMPARISON: None TECHNIQUE: CT sinuses performed without intravenous contrast. Coronal and sagittal reformatted imag es obtained. FINDINGS: The heart and in the clear sinuses clear. Temporal mandibular joints normally aligned. N o fracture. Globes, retrobulbar structures unremarkable. Minimal mucosal thickening maxillary sinuse s. Minimal mucosal thickening sphenoid sinuses. Minimal mucosal thickening ethmoid air cells. Fron tyrese sinuses clear. Mild mucoperiosteal thickening ostiomeatal units. Nasal septum near midline. No air-fluid levels paranasal sinuses. Atherosclerotic vascular calcification carotid arteries. IMPRESSION: Minimal sinusitis with chronic features.
== END 2018-12-22 18:25 | disposition home or self-care (01) ==
LOC: ED 16:08
DX: J01.90 Acute sinusitis, unspecified (principal); J44.9 Chronic obstructive pulmonary disease, unspecified; R06.02 Shortness of breath; I10 Essential (primary) hypertension; F17.210 Nicotine dependence, cigarettes, uncomplicated
CPT/HCPCS: 36415; 80053; 85025; 94640; 96372; 99283

== ENCOUNTER 2019-01-07 18:25 | Emergency (ER) ==
[2019-01-07 18:32] VITALS: BP 173/92; TEMP 97.6; BMI 43.0
[2019-01-07] MEDS ORDERED: PROTONIX IV IVP STA (19:30)
[2019-01-07] MEDS ORDERED: LACTATED RINGERS 1,000 ML IV STA (21:15)
--- NOTE | 2019-01-07 21:20 | ED.PDOC ---
General ED Provider: Dr. GENESIS GOULD Chief Complaint: GI Bleed Stated Complaint: Had colonoscopy few days ago she was given Bentyl for cramping. Today she had severe cramping but the bentyl did not help. Then when she went to the bathroom she had bloody diarrhea. Time Seen by Physician: 21:19 Mode of Arrival: Wheelchair Information Source: Patient Primary Care Provider: RADU CORBETT Nursing and Triage Documentation Reviewed and Agree: Yes Does patient meet sepsis criteria?: No System Inflammatory Response Syndrome: Not Applicable Sepsis Protocol: For patient's 13 years and over: Temp is 96.8 and below OR 101 and greater Pulse >90 BPM Resp >20/minute Acutely Altered Mental Status Are patient's symptoms suggestive of a new infection, such as: -Pneumonia -Skin, Soft Tissue -Endocarditis -UTI -Bone, Joint Infection -Implantable Device -Acute Abdominal Infection -Wound Infection -Meningitis -Blood Stream Catheter Infection -Unknown Review of Systems - Review Of Systems Constitutional: Reports: No symptoms Eyes: Reports: No symptoms Ears, Nose, Mouth, Throat: Reports: No symptoms Respiratory: Reports: No symptoms Cardiac: Reports: No symptoms GI: Reports: Abdominal pain (cramping ), Diarrhea, Poor appetite : Reports: No symptoms Musculoskeletal: Reports: No symptoms Skin: Reports: No symptoms Neurological: Reports: No symptoms Endocrine: Reports: No symptoms Hematologic/Lymphatic: Reports: No symptoms All Other Systems: Reviewed and Negative Past Medical History - Past Medical History Previously Healthy: No Endocrine: Reports: None Cardiovascular: Reports: Hypertension Respiratory: Reports: COPD Hematological: Reports: None Gastrointestinal: Reports: GERD Genitourinary: Reports: None Neuro/Psych: Reports: None, Unknown Musculoskeletal: Reports: None Cancer: Reports: None Last Menstrual Period: hysterectomy - Surgical History General Surgical History: Reports: Unknown - Family History Family History: Reports: Unknown - Social History Smoking Status: Current every day smoker, Light tobacco smoker Hx Substance Use: No Alcohol Screening: None Physical Exam - Physical Exam Appearance: Ill-appearing, Obese Ill-appearing: Mild Pain Distress: Mild Eyes: KONSTANTIN, EOMI, Conjunctiva clear Neck: Supple Respiratory: Airway patent, Breath sounds clear, Breath sounds equal, Respirations nonlabored Cardiovascular: RRR, Pulses normal, No rub, No murmur GI/: Soft, Tender (mild no rebound ) Musculoskeletal: Normal strength, ROM intact Skin: Warm, Dry Neurological: Sensation intact Psychiatric: Anxious Interpretation - Radiology Interpretation Radiology Interpretation By: Radiologist Radiology Results: Negative Exam Interpreted: CT Scan Re-Evaluation - Re-Evaluation Time of Re-Evaluation: 22:45 Status: Improved Vital Signs Stable: Yes Pain Level: better Appearance: NAD Critical Care Note - Critical Care Note Total Time (mins): 35 Course - Course Hematology/Chemistry: 01/07/19 21:01 01/07/19 21:01 Orders, Labs, Meds: Lab Review 01/07/19 01/07/19 21:01 21:01 WBC 7.89 RBC 4.40 Hgb 13.6 Hct 42.4 MCV 96.4 MCH 30.9 MCHC 32.1 RDW Coeff of Yara 13.8 Plt Count 189 Immature Gran % (Auto) 0.4 Neut % (Auto) 62.1 Lymph % (Auto) 28.9 [place] % (Auto) 6.8 Eos % (Auto) 1.3 Baso % (Auto) 0.5 Immature Gran # (Auto) 0.0 Neut # (Auto) 4.9 Lymph # (Auto) 2.3 [place] # (Auto) 0.5 Eos # (Auto) 0.1 Baso # (Auto) 0.0 Sodium 136.7 Potassium 4.17 Chloride 103.9 Carbon Dioxide 26.3 Anion Gap 10.67 BUN 17.8 H Creatinine 0.76 Estimated GFR (MDRD) 75.00 BUN/Creatinine Ratio 23.42 Glucose 95.9 Calcium 9.62 Total Bilirubin 0.40 AST 22.0 ALT 16.3 Alkaline Phosphatase 75.0 Total Protein 7.47 Albumin 4.05 Globulin 3.42 Albumin/Globulin Ratio 1.18 Amylase 71.8 Lipase 102.1 Orders Category Date Time Status ED IV/MEDIPORT/POWERPORT .ONCE EMERGENCY 01/07/19 19:30 Active ED IV/MEDIPORT/POWERPORT .ONCE EMERGENCY 01/07/19 21:15 Inactive AMYLASE Stat LAB 01/07/19 21:01 Completed CBC W/ AUTO DIFF Stat LAB 01/07/19 21:01 Completed COMPREHENSIVE METABOLIC PANEL Stat LAB 01/07/19 21:01 Completed LIPASE Stat LAB 01/07/19 21:01 Completed 0.9 % Sodium Chloride [Saline Flush] MEDS 01/07/19 19:30 Discontinued 1 syr IVF PRN PRN 0.9 % Sodium Chloride [Saline Flush] MEDS 01/07/19 21:15 Discontinued 1 syr IVF PRN PRN Pantoprazole Sodium [Protonix IV] MEDS 01/07/19 21:52 Discontinued 40 mg .ROUTE .STK-MED ONE Pantoprazole Sodium [Protonix IV] MEDS 01/07/19 19:30 Discontinued 40 mg IVP ONCE STA Ringers Lactated Solution [Lactated Ringers] 1,000 ml MEDS 01/07/19 21:[address] ABDOMEN/PELVIS WO CONTRAST Stat RADS 01/07/19 21:19 Completed Medications Discontinued Medications Generic Name Dose Route Start Last Admin Trade Name Freq PRN Reason Stop Dose Admin Lactated Ringer's 1,000 mls @ 1,000 mls/hr 01/07/19 21:15 01/07/19 21:55 Lactated Ringers IV 01/07/19 22:14 1,000 mls/hr BOLUS STA Administration Pantoprazole Sodium 40 mg 01/07/19 19:30 01/07/19 21:55 Protonix Iv IVP 01/07/19 19:31 40 mg ONCE STA Administration Sodium Chloride 1 syr 01/07/19 19:30 01/07/19 21:55 Saline Flush IVF 1 syr PRN PRN Administration To flush IV Sodium Chloride 1 syr 01/07/19 21:15 Saline Flush IVF PRN PRN To flush IV Vital Signs: Temp Pulse Resp BP Pulse Ox 01/07/19 18:25 97.6 F 81 24 173/92 H 92 L Departure - Departure Time of Disposition: 23:04 Disposition: HOME SELF-CARE Discharge Problem: Lower GI bleed Instructions: Gastrointestinal Bleeding (ED) Condition: Fair Pt referred to PMD for follow-up: Yes IPMP verified?: No Additional Instructions: Follow up with PCP in 2-3 days Return if worse or you feel dizzy or short of breath Allergies/Adverse Reactions: Allergies codeine Adverse Reaction (Verified 01/07/19 18:32) Home Medications: Ambulatory Orders Calcium Carb, Citrate/Vit D3 [Calcium + D3 ER Tablet] 1 each PO DAILY 03/03/18 Hydrocodone/Acetaminophen [Hydrocodon-Acetaminophn 10-325] 1 each PO DIRECTED PRN 03/03/18 Olopatadine HCl [Pataday] 1 drop OP BID 05/15/18 [place]-3/Dha/Epa/Fish Oil [Fish Oil 1,000 mg Softgel] 2 each PO DAILY 03/03/18 Lorazepam [Ativan] 1 mg PO DAILY 12/14/18 Polyethylene Glycol 3350 [Miralax] 17 gm PO DAILY PRN 12/14/18 Disposition Discussed With: Patient, Family
[2019-01-07] MEDS ORDERED: PROTONIX IV ONE (21:52)
--- NOTE | 2019-01-07 22:48 | CT ---
EXAM: CT scan abdomen pelvis without contrast HISTORY: Abdominal pain with bloody stool COMPARISON: CT scan abdomen pelvis 05/13/2015 FINDINGS: Contiguous axial images obtained through the abdomen pelvis without contrast utilizing 3-m m collimation. Sagittal and coronal reconstructions were imaged and reviewed.. There is a small hia tyrese hernia. The visualized lung bases are clear. Been prior cholecystectomy. The liver, pancreas, spleen and adrenal glands have normal unenhanced CT appearance. Atherosclerotic changes are seen invo lving the aorta without aneurysm formation. The left kidney is unremarkable. There is a new solid appearing exophytic lesion upper pole right kidney measuring 1.9 x 0.9 cm. There is also a stable cys t upper pole right kidney.. Suggest ultrasound for further characterization. There has been a prior hysterectomy. There is no free fluid. There is mild diverticulosis without diverticulitis. Bladde r is small volumed limiting evaluation. There has been prior ventral hernia repair. Bone windows re veals no evidence of lytic or blastic lesions. IMPRESSION: Prior cholecystectomy and hysterectomy. Minimal diverticulosis without diverticulitis. No free fluid or inflammatory changes New solid appearing nodule upper pole right kidney which could be further evaluated with ultrasound
== END 2019-01-07 23:18 | disposition home or self-care (01) ==
LOC: ED 18:25
DX: K92.1 Melena (principal); R10.9 Unspecified abdominal pain; Z98.890 Other specified postprocedural states; I10 Essential (primary) hypertension; F17.210 Nicotine dependence, cigarettes, uncomplicated; Z79.899 Other long term (current) drug therapy
CPT/HCPCS: 36415; 80053; 82150; 83690; 85025; 96361; 96375; 99283

== ENCOUNTER 2019-01-25 06:59 | Outpatient (CLI) | payer OTHER ==
--- NOTE | 2019-01-25 08:26 | US ---
EXAM: RENAL ULTRASOUND, BILATERAL HISTORY: Solid appearing renal mass seen on the recent CT FINDINGS: Ultrasound renal, bilateral. [place]ura-scale ultrasound and color Doppler imaging was performe d. The right kidney measures 12.5 x 5.3 x 5.0 centimeters. The left kidney measures 10.3 x 4.5 x 4.3 centimeters. The exam was described as technically difficult secondary to body habitus. Image quality is noted to be less than optimal. Two right-sided renal masses are identified which correlate to the CT abnorma lities. One was located in the superior most aspect of the renal cortex measuring 1.7 x 1.2 x 1.5 cm and the other slightly more inferior and lateral within this kidney measuring 1.9 x 1.7 x 1.8 cm. B oth of these entities appeared to have grossly cystic appearance by ultrasound although given exam li mitations, CT urogram or renal protocol MRI could be considered. The renal cortical volume and echog enicity were otherwise unremarkable. No hydronephrosis. Urinary bladder was relatively decompressed and grossly unremarkable. IMPRESSION: 1. Two cystic appearing masses of the right renal cortex correlate to that seen on recent CT and may represent cysts. Given the limitations to the exam, follow-up CT urogram or renal protocol MRI is c an be considered.
== END 2019-01-25 07:00 | disposition home or self-care (01) ==
LOC: RAD 06:59
PROVIDERS: ATTEND Nurse Practitioner Family
DX: N28.89 Other specified disorders of kidney and ureter (principal)

== ENCOUNTER 2019-02-10 07:49 | Outpatient (CLI) ==
--- NOTE | 2019-02-10 09:49 | CT ---
EXAM: CT urogram HISTORY: Renal mass urogram COMPARISON: Ultrasound 01/25/[address] 01/07/2019 TECHNIQUE: CT urogram performed with and without intravenous contrast. Coronal and sagittal reforma tted images obtained. 3-D reformatted images created. FINDINGS: Mild bibasilar atelectasis and/or scarring. No free air. No acute abnormalities of the b ones. Degenerative change in the spine. Heart normal in size. The liver appears normal. The patie nt status post cholecystectomy. Pancreas unremarkable. Spleen unremarkable. Adrenals unremarkable. Aorta normal in caliber. Moderate atherosclerosis. The the patient status post hysterectomy. The small fat-containing periumbilical hernia. Stomach unremarkable. No dilated loops small bowel. Ap pendix not visualized. Mobile cecum. Colonic diverticulosis. No lymphadenopathy or ascites. No hy dronephrosis or nephrolithiasis. No calculi visualized in the normal course of the ureters. Renal c ortical enhancement of the is symmetric. Excretion is symmetric. 1.3 cm cyst arises exophytically f rom the right superior kidney. 1.8 cm lesion arising exophytically from the right mid kidney measure s approximately 28 HU on noncontrast imaging with less than 10 average Hounsfield units increase on d elayed postcontrast imaging, likely reflecting pseudo enhancement rather than true enhancement. No d efinitive internal enhancement identified. No filling defects identified in the right or left collect ing system. No filling defects identified in the right or left ureter, noting distal left ureter not opacified and therefore not evaluated. Bladder unremarkable. IMPRESSION: 1. 1.8 cm right renal lesion, without definitive enhancement. This is favored to represent a compli cated cyst. Recommend CT abdomen with and without contrast follow-up in 6 months for reevaluation. 2. Additional simple right renal cyst. 3. Colonic diverticulosis. 4. Atherosclerosis.
== END 2019-02-10 07:50 | disposition home or self-care (01) ==
LOC: RAD 07:49
PROVIDERS: ATTEND Nurse Practitioner Family
DX: N28.89 Other specified disorders of kidney and ureter (principal)

== ENCOUNTER 2021-11-16 16:40 | Inpatient (IN) ==
--- NOTE | 2021-11-16 16:48 | ED.PDOC ---
General ED Provider: Dr. AIDAN MULLEN Chief Complaint: Extremity Pain/Injury Stated Complaint: Noticed her legs swelling over the past several days, taking a mild diuretic, HCTZ 12.5 mg daily without relief. No chest pain or SOA. Hx HTN, but not CAD. Goes to the clinic for primary care. Time Seen by Provider: 11/16/21 16:48 Mode of Arrival: Walk-In Information Source: Patient Exam Limitations: No limitations Primary Care Provider: AARON EDOUARD Nursing and Triage Documentation Reviewed and Agree: Yes Does patient meet sepsis criteria?: No System Inflammatory Response Syndrome: Not Applicable Sepsis Protocol: For patient's 13 years and over: Temp is 96.8 and below OR 101 and greater Pulse >90 BPM Resp >20/minute Acutely Altered Mental Status Are patient's symptoms suggestive of a new infection, such as: -Pneumonia -Skin, Soft Tissue -Endocarditis -UTI -Bone, Joint Infection -Implantable Device -Acute Abdominal Infection -Wound Infection -Meningitis -Blood Stream Catheter Infection -Unknown Cardiovascular Complaint Exam Palpitations Complaint/Exam Onset/Duration: noted today Symptoms Are: Still present Timing: Constant Initial Severity: Moderate Current Severity: Moderate Character: Reports Fast and Irregular Aggravating: Reports None Alleviating: Reports None Associated Signs and Symptoms: Denies Lightheadedness, Dizziness, Syncope, Chest pain, Shortness of breath, Diaphoresis, Nausea or Vomiting Related History: Similar episode (no) Related Surgical History: Reports None Cardiac Risk Factors: Reports Hypertension Pulmonary Embolism Risk Factors: Reports None Atrial Fibrillation Risk Factors: Reports Hypertension Thyroid Exam: Normal Review of Systems Review Of Systems Constitutional: Reports No symptoms Eyes: Reports No symptoms Ears, Nose, Mouth, Throat: Reports No symptoms Respiratory: Reports No symptoms Cardiac: Reports Edema (legs), Irregular heart rate and Palpitations GI: Reports No symptoms : Reports No symptoms Musculoskeletal: Reports No symptoms Skin: Reports No symptoms Neurological: Reports No symptoms Endocrine: Reports No symptoms Hematologic/Lymphatic: Reports No symptoms All Other Systems: Reviewed and Negative [facility] Medical History Arthritis Asthma Chronic obstructive pulmonary disease Gastroesophageal reflux disease Gastrointestinal problem Hyperlipidemia Hypertension Seasonal allergies Family History Mother Diabetes Hypertension Other Sinus problem Social History Smoking and tobacco status: Current every day smoker Alcohol intake: never Substance use type: does not use Seatbelt use: always Drives intoxicated or rides with intoxicated cab driver: No Water heater temperature set < 120 degrees: Yes Working smoke detector in home: Yes Fire extinguisher in home: Yes Carbon monoxide detector in home: Yes Surgical History Cataract extraction and insertion of intraocular lens History of dental surgery History of joint surgery History of tubal ligation Status post appendectomy Status post cholecystectomy Status post hysterectomy Female Reproductive History Menstrual Hx Hysterectomy: Yes Hx Tubal Ligation: Yes Physical Exam Physical Exam Appearance: Reports Well-appearing and Obese Ill-appearing: None Pain Distress: Mild Eyes: Reports [place]STANT[place] ENT: Reports Oropharynx normal Neck: Supple Respiratory: Reports Airway patent and Breath sounds clear Cardiovascular: Reports Irregular rhythm and Tachycardia GI/: Reports Soft and Nontender Musculoskeletal: Reports Normal strength and ROM intact Skin: Reports Warm and Dry Neurological: Reports Sensation intact, Motor intact and Alert Psychiatric: Reports Affect appropriate and Mood appropriate Interpretation Radiology Interpretation Radiology Results: Positive Exam Interpreted: Portable CXR Xray Comments: vascular congestion Enrolled Agent Time of Enrolled Agent Interpretation: 17:00 Rate: Tachy Rhythm: Other (afib) EKG Interpretation Time of EKG #1: 16:44 Rate: Tachy (135) Rhythm: Other (a-fib) Ectopy: None [place]: [place] ST Segment: Normal Interpretation: A-fib RVR, no ischemia Physician Notification Case Discussed Physician Notified: Dr. Shaw Time of Notification: 18:30 Comments: Admit to hospitalist. He will consult. Admit/Transition Orders Entered by ED Provider: Yes Admit To: Inpatient (tele) Critical Care Note Critical Care Note Total Critical Care Time (mins): 30 Comments: Afib with RVR, CHF - new onset Course Course Hematology/Chemistry: 11/16/21 17:15 11/16/21 17:15 Orders, Labs, Meds: Lab Review 11/16/21 11/16/21 11/16/21 17:08 17:15 17:15 WBC 8.96 RBC 4.57 Hgb 14.5 Hct 44.2 MCV 96.7 MCH 31.7 H MCHC 32.8 RDW Coeff of Yara 15.0 H Plt Count 200 Immature Gran % (Auto) 0.7 Neut % (Auto) 66.8 Lymph % (Auto) 25.2 [place] % (Auto) 5.8 Eos % (Auto) 1.1 Baso % (Auto) 0.4 Neut # (Auto) 6.0 Lymph # (Auto) 2.3 [place] # (Auto) 0.5 Eos # (Auto) 0.1 Baso # (Auto) 0.0 Immature Gran # (Auto) 0.1 PT INR APTT Sodium 135.9 Potassium 3.65 Chloride 102.8 Carbon Dioxide 26.1 Anion Gap 10.65 BUN 20.1 H Creatinine 0.80 Estimated GFR (MDRD) 70.00 BUN/Creatinine Ratio 25.12 Glucose 129.6 H Calcium 9.56 Total Bilirubin 0.44 AST 21.9 ALT 21.7 Alkaline Phosphatase 68.7 Troponin I < 0.012 NT-Pro-B Natriuret Pep Total Protein 6.73 Albumin 4.05 Globulin 2.68 Albumin/Globulin Ratio 1.51 Triglycerides 152.3 H Cholesterol 102.9 LDL Cholesterol, Calc 44 VLDL Cholesterol 30 HDL Cholesterol 28.6 L Cholesterol/HDL Ratio 3.6 L SARS CoV-2 RNA Rapid MAIRA 11/16/21 11/16/21 11/16/21 17:15 17:15 18:18 WBC RBC Hgb Hct MCV MCH MCHC RDW Coeff of Yara Plt Count Immature Gran % (Auto) Neut % (Auto) Lymph % (Auto) [place] % (Auto) Eos % (Auto) Baso % (Auto) Neut # (Auto) Lymph # (Auto) [place] # (Auto) Eos # (Auto) Baso # (Auto) Immature Gran # (Auto) PT 11.3 H INR 1.09 APTT 26.1 Sodium Potassium Chloride Carbon Dioxide Anion Gap BUN Creatinine Estimated GFR (MDRD) BUN/Creatinine Ratio Glucose Calcium Total Bilirubin AST ALT Alkaline Phosphatase Troponin I NT-Pro-B Natriuret Pep 1830.000 H Total Protein Albumin Globulin Albumin/Globulin Ratio Triglycerides Cholesterol LDL Cholesterol, Calc VLDL Cholesterol HDL Cholesterol Cholesterol/HDL Ratio SARS CoV-2 RNA Rapid MAIRA Negative Orders Category Date Time Status EKG-(ED ONLY) Stat CARDIO 11/16/21 16:59 Completed CBC W/ AUTO DIFF Stat LAB 11/16/21 17:15 Completed COMPREHENSIVE METABOLIC PANEL Stat LAB 11/16/21 17:15 Completed NT-PROBNP Stat LAB 11/16/21 17:15 Completed PARTIAL THROMBOPLASTIN TIME Stat LAB 11/16/21 17:15 Completed PT WITH INR Stat LAB 11/16/21 17:15 Completed TROPONIN I Stat LAB 11/16/21 17:15 Completed Diltiazem HCl [Cardizem Inj] MEDS 11/16/21 16:57 Discontinued 25 mg IVP ONCE ONE Diltiazem HCl [Cardizem] MEDS 11/16/21 19:32 Discontinued 60 mg PO ONCE ONE Diltiazem HCl [Cardizem] MEDS 11/16/21 19:30 Discontinued 60 mg PO Q6HR Enoxaparin Sodium [Lovenox] MEDS 11/16/21 19:06 Discontinued 150 mg SUBCUT ONCE ONE CHEST, 1V AP ONLY Stat RADS 11/16/21 16:57 Completed Medications Generic Name Dose Route Start Last Admin Trade Name Freq PRN Reason Stop Dose Admin Acetaminophen 650 mg 11/16/21 20:19 Acetaminophen 325 Mg Tablet PO Q4H PRN Headache Hydrocodone Bitart/Acetaminophen 1 tab 11/16/21 20:32 11/16/21 22:09 Hydrocodone Bit/Acetaminophen 10/325 Mg Tablet PO 1 tab DIRECTED PRN Administration Pain Apixaban 5 mg 11/17/21 09:00 Apixaban 5 Mg Tab PO BID BESS Atropine Sulfate 0.5 mg 11/16/21 20:19 Atropine Sulfate Inj 1 Mg/10 Ml Disp.Syrin IVP 11/17/21 20:18 ONCE PRN Symptomatic Bradycardia Benzonatate 200 mg 11/17/21 01:01 11/17/21 01:31 Benzonatate 100 Mg Capsule PO 200 mg TID PRN Administration Cough Budesonide/Formoterol Fumarate 2 puff 11/17/21 06:00 Budesonide/Formoterol Fumarate 160/4.5 Mcg Inhaler IH RTBID BESS Citalopram Hydrobromide 20 mg 11/17/21 09:00 Citalopram Hydrobromide 20 Mg Tablet PO DAILY BESS Famotidine 40 mg 11/17/21 06:30 Famotidine 20 Mg Tablet PO BIDAC BESS Furosemide 20 mg 11/16/21 20:30 11/16/21 22:09 Furosemide Inj 20 Mg/2 Ml Vial IVP 20 mg BIDAC BESS Administration Nitroglycerin 0.4 mg 11/16/21 20:19 Nitroglycerin 0.4 Mg Tab.Subl SL Q5MIN X 3 DOSES PRN Chest Pain Oxybutynin Chloride 10 mg 11/17/21 09:00 Oxybutynin Chloride 5 Mg Tab.Er.24 PO DAILY [facility] Polyethylene Glycol 17 gm 11/16/21 20:32 Polyethylene Glycol 17 Gm Powd.Pack PO DAILY PRN Constipation Potassium Chloride 20 meq 11/17/21 09:00 Potassium Chloride 20 Meq Tab PO DAILY BESS Sodium Chloride 1 syr 11/16/21 21:00 11/16/21 22:10 0.9% Sodium Chloride 10 Ml Disp.Syrin IVF 1 syr Q8HR [facility] Administration Discontinued Medications Generic Name Dose Route Start Last Admin Trade Name Freq PRN Reason Stop Dose Admin Diltiazem HCl 25 mg 11/16/21 16:57 11/16/21 17:03 Diltiazem Hcl Inj 25 Mg/5 Ml Vial IVP 11/16/21 16:58 25 mg ONCE ONE Administration Diltiazem HCl 60 mg 11/16/21 19:30 Diltiazem Hcl 60 Mg Tablet PO Q6HR [facility] Diltiazem HCl 60 mg 11/16/21 19:32 11/16/21 19:36 Diltiazem Hcl 60 Mg Tablet PO 11/16/21 19:33 60 mg ONCE ONE Administration Enoxaparin Sodium 150 mg 11/16/21 19:06 11/16/21 19:31 Enoxaparin Sodium 150 Mg/Ml Syr SUBCUT 11/16/21 19:07 150 mg ONCE ONE Administration Vital Signs: Temp Pulse Resp BP Pulse Ox 11/16/21 16:42 98.0 F 144 H 26 H 183/116 H 93 L JOSE DE JESUS Risk Score JOSE DE JESUS Risk Score: Risk Score Odds of by 30D 0 0.1 (0.1-0.2) 1 0.3 (0.2-0.3) 2 0.4 (0.3-0.5) 3 0.7 (0.6-0.9) 4 1.2 (1.0-1.5) 5 2.2 (1.9-2.6) 6 3.0 (2.5-3.6) 7 4.8 (3.8-6.1) Discharge Plan Discharge Patient Disposition: ADMITTED INPATIENT Discharge Problem: Atrial fibrillation with rapid ventricular response, CHF (congestive heart failure) ED Provider: AIDAN MULLEN Condition: Stable Physician Progress Note: [Given cardizem IV 25 mg and heart rate down to 100, not converted. No sign of AR. Mild fluid overload. Admit to hospitalist, Dr. Shaw will consult. Try oral vs IV cardizem.]
[2021-11-16] MEDS ORDERED: CARDIZEM INJ IVP ONE (16:57)
[2021-11-16 17:20] LABS: BASOPHILS % (AUTO) 0.4 % (0.0-3.0); EOSINOPHILS # (AUTO) 0.1 K/ul (0.0-0.7); EOSINOPHILS % (AUTO) 1.1 % (0.0-7.0); HEMATOCRIT 44.2 % (37.0-47.0); HEMOGLOBIN 14.5 g/dl (12.0-16.0); IMMATURE GRANULOCYTE # (AUTO) 0.1 (0.0-1.0); IMMATURE GRANULOCYTE % (AUTO) 0.7 % (0.0-5.0); LYMPHOCYTES # (AUTO) 2.3 K/uL (0.60-3.4); LYMPHOCYTES % (AUTO) 25.2 (10.0-50.0); MEAN CORPUSCULAR HEMOGLOBIN 31.7 pg (27.0-31.0); MEAN CORPUSCULAR HGB CONC 32.8 (31.8-35.4); MEAN CORPUSCULAR VOLUME 96.7 fl (81.0-99.0); MONOCYTES # (AUTO) 0.5 K/uL (0.4-2.0); MONOCYTES % (AUTO) 5.8 (0-10); NEUTROPHILS % (AUTO) 66.8 % (42.2-75.2); PLATELET COUNT 200 10^3/uL (140-440); RED BLOOD COUNT 4.57 10^6/ul (4.20-5.40); WHITE BLOOD COUNT 8.96 K/ul (4.6-10.2)
--- NOTE | 2021-11-16 17:30 | DI ---
EXAM: Chest, single view HISTORY: Dyspnea COMPARISON: 12/22/2018 FINDINGS / IMPRESSION: Cardiomediastinal contours appear stable. Basilar interstitial opacitis may relate to atelectasis or pneumonitis. There is no focal pulmonary consolidation. No pleural effusio n or pneumothorax.
[2021-11-16 17:31] LABS: ALANINE AMINOTRANSFERASE 21.7 U/L (0-35); ALBUMIN 4.05 g/dL (3.5-5.0); ALKALINE PHOSPHATASE 68.7 U/L (53-141); ASPARTATE AMINO TRANSFERASE 21.9 U/L (14-36); BILIRUBIN,TOTAL 0.44 mg/dL (0.2-1.3); BLOOD UREA NITROGEN 20.1 mg/dL (7-17); CALCIUM 9.56 mg/dL (8.4-10.2); CARBON DIOXIDE 26.1 mmol/L (22-30.0); CHLORIDE 102.8 mmol/L (98-107); GLUCOSE 129.6 mg/dL (74-106); POTASSIUM 3.65 mmol/L (3.5-5.1); SODIUM 135.9 mmol/L (134.5-145); TOTAL PROTEIN 6.73 g/dL (6.3-8.2)
[2021-11-16 17:41] LABS: PARTIAL THROMBOPLASTIN TIME 26.1 SEC (23.9-40.0); PROTHROMBIN TIME 11.3 SEC (9.3-11.0)
[2021-11-16 17:43] LABS: TROPONIN I < 0.012 ng/ml (0.0000-0.120)
[2021-11-16] MEDS ORDERED: LOVENOX SUBCUT ONE (19:06)
[2021-11-16] MEDS ORDERED: CARDIZEM PO SCH (19:30)
[2021-11-16] MEDS ORDERED: CARDIZEM PO ONE (19:32)
[2021-11-16] MEDS ORDERED: NITROSTAT SL PRN (20:19)
[2021-11-16] MEDS ORDERED: ATROPINE SULFATE PFS IVP PRN (20:19)
[2021-11-16] MEDS ORDERED: TYLENOL PO PRN (20:19)
[2021-11-16] MEDS ORDERED: NORCO 10-325 PO PRN (20:32)
[2021-11-16] MEDS ORDERED: MIRALAX PO PRN (20:32)
[2021-11-16] MEDS: LASIX IVP SCH (22:09)
[2021-11-16 22:22] LABS: CHOLESTEROL 102.9 mg/dL (0-200); HDL CHOLESTEROL 28.6 mg/dL (35-80); TRIGLYCERIDES 152.3 mg/dL (0-150)
[2021-11-16 22:40] VITALS: BMI 55.5
[2021-11-17] MEDS: TESSALON PERLES PO PRN (01:31)
[2021-11-17 02:55] LABS: ABG PH 7.46 (7.35-7.45)
[2021-11-17 02:56] LABS: BEecf 5.4 (-2.0-3.0); COHb 6.3 (0.5-1.5); HCO3 29.2 (21-28); MetHb 0 (0-1.5); TCO2 30.5 (19-24); tHb 14.6 g/dl (11.7-17.4)
[2021-11-17 02:57] LABS: ABG O2 HGB 92.6 % (95-100)
[2021-11-17] MEDS: LASIX IVP SCH (05:47)
[2021-11-17] MEDS: PEPCID PO SCH ×2 (05:47→17:11)
[2021-11-17 05:51] LABS: MAGNESIUM 1.93 mg/dL (1.6-2.3)
[2021-11-17 05:55] LABS: BLOOD UREA NITROGEN 19.6 mg/dL (7-17); CALCIUM 9.42 mg/dL (8.4-10.2); CARBON DIOXIDE 29.1 mmol/L (22-30.0); CHLORIDE 103.6 mmol/L (98-107); CREATININE 0.69 mg/dL (0.60-1.30); POTASSIUM 3.89 mmol/L (3.5-5.1); SODIUM 137.8 mmol/L (134.5-145)
[2021-11-17] MEDS ORDERED: SYMBICORT 160-4.5 MCG INHALER IH SCH (06:00)
[2021-11-17 06:03] LABS: TROPONIN I 0.013 ng/ml (0.0000-0.120)
[2021-11-17 06:21] LABS: THYROID STIMULATING HORMONE 2.73 uIU/L (0.465-4.68)
[2021-11-17] MEDS: CELEXA PO SCH (09:20)
[2021-11-17] MEDS: K-DUR PO SCH (09:20)
[2021-11-17] MEDS: DITROPAN XL PO SCH (09:20)
--- NOTE | 2021-11-17 09:20 | PCM ---
Chief Complaint Chief Complaint: SOB and Leg-ankle edema History of Present Illness History of Present Illness: Resents to ER yesterday with above complaints.Dx with Atrial fib RVR, treated and admitted for additional evaluatiion and treatment. Review of Systems Constitutional: Denies No symptoms, Fever, Chills, Weakness, Sweats, Fatigue, Loss of appetite or Other Eyes: Denies No symptoms, Blurred vision, Double-vision, Discharge, Itching, Pain, Redness, Photophobia or Other Ears: Denies No symptoms, Pain, Bleeding, Drainage, Ringing, Hearing loss or Other Nose: Denies No symptoms, Bleeding, Congestion, Discharge or Other Throat: Denies No symptoms, Pain, Swelling, Voice change or Other Mouth: Denies No symptoms, Bleeding, Pain, Swelling or Other Respiratory: Reports Cough and Shortness of air; Denies No symptoms, Wheeze, Hemoptysis, Pain with breathing or Other Cardiovascular: Reports PND, Orthopnea and Edema; Denies Palpitations or Syncope Gastrointestinal: Denies No symptoms, Abdominal pain, Nausea, Vomiting, Diarrhea, Melena, Hematemesis, Hematochezia, Dysphagia, Constipation or Other Genitourinary: Denies No symptoms, dysuria, hematuria, frequency, incontinence, flank pain, vaginal discharge, abnormal bleeding, pelvic pain or other Neurological: Denies No symptoms, Headache, Dizziness, Seizure, Numbness, Weakness, Speech difficulty, Problems with walking, Tremor, Fainting or Other Musculoskeletal: Denies No symptoms, Pain, Swelling in joints or Other Skin: Denies No symptoms, Rash, Pruritus, Lacerations, Wounds, Bruising or Other Immunology: Denies No symptoms, Hives, Itching, Frequent infections, Difficulty healing or Other Hematology: Denies No symptoms, Easy bruising, Easy bleeding, Swollen glands or Other Endocrine: Denies No symptoms, Weight changes, Cold intolerance, Heat intolerance, Excessive thirst, Excessive hunger, Polyuria or Other Psychiatric: Denies No symptoms, Depression, Anxiety, Sleeplessness, Hopelessness, Suicidal, Hallucinations or Other Habits: Reports Tobacco use (daily tobacco use); Denies Substance use, Alcohol use or Other Allergies Allergies Allergy/AdvReac Type Severity Reaction Status Date / Time codeine AdvReac Vomiting Verified 05/04/21 14:05 [facility], [facility] Medical History (Updated 11/17/21 @ 09:32 by KIAH PHELAN DO) Arthritis Asthma Chronic obstructive pulmonary disease Gastroesophageal reflux disease Gastrointestinal problem Hyperlipidemia Hypertension Seasonal allergies Surgical History Cataract extraction and insertion of intraocular lens History of dental surgery History of joint surgery History of tubal ligation Status post appendectomy Status post cholecystectomy Status post hysterectomy Family History Mother Diabetes Hypertension Other Sinus problem Social History Smoking and tobacco status: Current every day smoker Alcohol intake: never Substance use type: does not use Seatbelt use: always Drives intoxicated or rides with intoxicated school bus driver: No Water heater temperature set < 120 degrees: Yes Working smoke detector in home: Yes Fire extinguisher in home: Yes Carbon monoxide detector in home: Yes Medications Medications: Medications Generic Name Dose Route Start Last Admin Trade Name Freq PRN Reason Stop Dose Admin Acetaminophen 650 mg 11/16/21 20:19 Acetaminophen 325 Mg Tablet PO Q4H PRN Headache Hydrocodone Bitart/Acetaminophen 1 tab 11/17/21 07:30 Hydrocodone Bit/Acetaminophen 10/325 Mg Tablet PO TID PRN Pain Apixaban 5 mg 11/17/21 09:00 Apixaban 5 Mg Tab PO BID BESS Atropine Sulfate 0.5 mg 11/16/21 20:19 Atropine Sulfate Inj 1 Mg/10 Ml Disp.Syrin IVP 11/17/21 20:18 ONCE PRN Symptomatic Bradycardia Benzonatate 200 mg 11/17/21 01:01 11/17/21 01:31 Benzonatate 100 Mg Capsule PO 200 mg TID PRN Administration Cough Budesonide/Formoterol Fumarate 2 puff 11/17/21 06:00 11/17/21 05:59 Budesonide/Formoterol Fumarate 160/4.5 Mcg Inhaler IH 2 puff RTBID BESS Administration Citalopram Hydrobromide 20 mg 11/17/21 09:00 Citalopram Hydrobromide 20 Mg Tablet PO DAILY BESS Famotidine 40 mg 11/17/21 06:30 11/17/21 05:47 Famotidine 20 Mg Tablet PO 40 mg BIDAC BESS Administration Furosemide 20 mg 11/16/21 20:30 11/17/21 05:47 Furosemide Inj 20 Mg/2 Ml Vial IVP 20 mg BIDAC BESS Administration Nitroglycerin 0.4 mg 11/16/21 20:19 Nitroglycerin 0.4 Mg Tab.Subl SL Q5MIN X 3 DOSES PRN Chest Pain Oxybutynin Chloride 10 mg 11/17/21 09:00 Oxybutynin Chloride 5 Mg Tab.Er.24 PO DAILY BESS Polyethylene Glycol 17 gm 11/16/21 20:32 Polyethylene Glycol 17 Gm Powd.Pack PO DAILY PRN Constipation Potassium Chloride 20 meq 11/17/21 08:30 Potassium Chloride 20 Meq Tab PO DAILYWM BESS Sodium Chloride 1 syr 11/16/21 21:00 11/17/21 05:47 0.9% Sodium Chloride 10 Ml Disp.Syrin IVF 1 syr Q8HR BESS Administration Body Composition Height: 5 ft 3 in Weight: 313 lb 11.2 oz Body Mass Index (BMI): 55.5 Vital Signs Temperature: 97.9 F Pulse Rate: 85 Respiratory Rate: 18 Blood Pressure: 139/98 O2 Sat by Pulse Oximetry: 98 Physical Examination Appearance: Reports Well-appearing, No pain distress, Well-nourished and Obese Ill-appearing: Mild Pain Distress: Not Applicable Eyes: Reports KONSTANTIN, EOMI, Conjunctiva clear, Conjunctiva inflammed, Conjunctiva pale, Right pupil size and Left pupil size ENT: Reports Ears normal, Nose normal, Oropharynx normal, Rhinorrhea, Erythema, Exudate, Dry mucosa, Other and Not Examined; Denies Epistaxis Neck: Supple (no jvd neg hepatojuguar reflux) Respiratory: Reports Breath sounds clear, Breath sounds equal and Respirations nonlabored Cardiovascular: Reports Irregular rhythm (HR irreg irreg) GI/: Reports Soft, Nontender and No masses Musculoskeletal: Reports Normal strength, No calf tenderness and Edema; Denies Calf tenderness Skin: Reports Warm, Dry and Normal color Neurological: Reports Sensation intact, Motor intact, Reflexes intact, Cranial nerves intact, Alert and Oriented Psychiatric: Reports Affect appropriate and Mood appropriate Lab/Tests/Diagnostic Imaging Lab/Tests/Diagnostic Imaging: Lab Review 11/16/21 11/16/21 11/16/21 17:08 17:15 17:15 WBC 8.96 RBC 4.57 Hgb 14.5 Hct 44.2 MCV 96.7 MCH 31.7 H MCHC 32.8 RDW Coeff of Yara 15.0 H Plt Count 200 Immature Gran % (Auto) 0.7 Neut % (Auto) 66.8 Lymph % (Auto) 25.2 [place] % (Auto) 5.8 Eos % (Auto) 1.1 Baso % (Auto) 0.4 Neut # (Auto) 6.0 Lymph # (Auto) 2.3 [place] # (Auto) 0.5 Eos # (Auto) 0.1 Baso # (Auto) 0.0 Immature Gran # (Auto) 0.1 PT INR APTT Puncture Site Base Excess O2 Saturation ABG pH ABG pCO2 ABG pO2 ABG HCO3 ABG Total CO2 Imtiaz Test Hemoglobin Oxyhemoglobin Carboxyhemoglobin Total Hemoglobin FiO2 % Sodium 135.9 Potassium 3.65 Chloride 102.8 Carbon Dioxide 26.1 Anion Gap 10.65 BUN 20.1 H Creatinine 0.80 Estimated GFR (MDRD) 70.00 BUN/Creatinine Ratio 25.12 Glucose 129.6 H Calcium 9.56 Magnesium Total Bilirubin 0.44 AST 21.9 ALT 21.7 Alkaline Phosphatase 68.7 Troponin I < 0.012 NT-Pro-B Natriuret Pep Total Protein 6.73 Albumin 4.05 Globulin 2.68 Albumin/Globulin Ratio 1.51 Triglycerides 152.3 H Cholesterol 102.9 LDL Cholesterol, Calc 44 VLDL Cholesterol 30 HDL Cholesterol 28.6 L Cholesterol/HDL Ratio 3.6 L TSH SARS CoV-2 RNA Rapid MAIRA 11/16/21 11/16/21 11/16/21 17:15 17:15 18:18 WBC RBC Hgb Hct MCV MCH MCHC RDW Coeff of Yara Plt Count Immature Gran % (Auto) Neut % (Auto) Lymph % (Auto) [place] % (Auto) Eos % (Auto) Baso % (Auto) Neut # (Auto) Lymph # (Auto) [place] # (Auto) Eos # (Auto) Baso # (Auto) Immature Gran # (Auto) PT 11.3 H INR 1.09 APTT 26.1 Puncture Site Base Excess O2 Saturation ABG pH ABG pCO2 ABG pO2 ABG HCO3 ABG Total CO2 Imtiaz Test Hemoglobin Oxyhemoglobin Carboxyhemoglobin Total Hemoglobin FiO2 % Sodium Potassium Chloride Carbon Dioxide Anion Gap BUN Creatinine Estimated GFR (MDRD) BUN/Creatinine Ratio Glucose Calcium Magnesium Total Bilirubin AST ALT Alkaline Phosphatase Troponin I NT-Pro-B Natriuret Pep 1830.000 H Total Protein Albumin Globulin Albumin/Globulin Ratio Triglycerides Cholesterol LDL Cholesterol, Calc VLDL Cholesterol HDL Cholesterol Cholesterol/HDL Ratio TSH SARS CoV-2 RNA Rapid MAIRA Negative 11/16/21 11/17/21 11/17/21 22:40 05:15 05:15 WBC RBC Hgb Hct MCV MCH MCHC RDW Coeff of Yara Plt Count Immature Gran % (Auto) Neut % (Auto) Lymph % (Auto) [place] % (Auto) Eos % (Auto) Baso % (Auto) Neut # (Auto) Lymph # (Auto) [place] # (Auto) Eos # (Auto) Baso # (Auto) Immature Gran # (Auto) PT INR APTT Puncture Site [place] Base Excess 5.4 H O2 Saturation 96.0 ABG pH 7.46 H ABG pCO2 41.0 ABG pO2 77.0 L ABG HCO3 29.2 H ABG Total CO2 30.5 H Imtiaz Test + Hemoglobin 0 Oxyhemoglobin 92.6 L Carboxyhemoglobin 6.3 H Total Hemoglobin 14.6 FiO2 % 21.0 Sodium 137.8 Potassium 3.89 Chloride 103.6 Carbon Dioxide 29.1 Anion Gap 8.99 BUN 19.6 H Creatinine 0.69 Estimated GFR (MDRD) 83.00 BUN/Creatinine Ratio 28.40 Glucose 94.0 Calcium 9.42 Magnesium 1.93 Total Bilirubin AST ALT Alkaline Phosphatase Troponin I 0.013 NT-Pro-B Natriuret Pep Total Protein Albumin Globulin Albumin/Globulin Ratio Triglycerides Cholesterol LDL Cholesterol, Calc VLDL Cholesterol HDL Cholesterol Cholesterol/HDL Ratio TSH 2.730 SARS CoV-2 RNA Rapid MAIRA 11/17/21 05:15 WBC RBC Hgb Hct MCV MCH MCHC RDW Coeff of Yara Plt Count Immature Gran % (Auto) Neut % (Auto) Lymph % (Auto) [place] % (Auto) Eos % (Auto) Baso % (Auto) Neut # (Auto) Lymph # (Auto) [place] # (Auto) Eos # (Auto) Baso # (Auto) Immature Gran # (Auto) PT INR APTT Puncture Site Base Excess O2 Saturation ABG pH ABG pCO2 ABG pO2 ABG HCO3 ABG Total CO2 Imtiaz Test Hemoglobin Oxyhemoglobin Carboxyhemoglobin Total Hemoglobin FiO2 % Sodium Potassium Chloride Carbon Dioxide Anion Gap BUN Creatinine Estimated GFR (MDRD) BUN/Creatinine Ratio Glucose Calcium Magnesium Total Bilirubin AST ALT Alkaline Phosphatase Troponin I NT-Pro-B Natriuret Pep 1730.000 H Total Protein Albumin Globulin Albumin/Globulin Ratio Triglycerides Cholesterol LDL Cholesterol, Calc VLDL Cholesterol HDL Cholesterol Cholesterol/HDL Ratio TSH SARS CoV-2 RNA Rapid MAIRA Orders Category Date Time Status ADMIT PATIENT INPATIENT .TO [facility] (MONITORED BED) ADMISSION 11/16/21 20:37 Active ABG DRAW REQUEST Stat CARDIO 11/16/21 22:01 Completed EKG-(ED ONLY) Stat CARDIO 11/16/21 16:59 Completed EKG-(IP & OP ONLY) DAILY CARDIO 11/17/21 06:00 Completed EKG-(IP & OP ONLY) DAILY CARDIO 11/18/21 06:00 Ordered EKG-(IP & OP ONLY) Routine CARDIO 11/16/21 22:03 Completed EKG-(IP & OP ONLY) Stat CARDIO 11/16/21 22:09 Completed OXYGEN Routine CARDIO 11/16/21 20:19 Active ACTIVITY .BR with BRP CARE 11/16/21 20:19 Active IP: INSERT SALINE LOCK ONCE CARE 11/16/21 20:19 Active NPO REMINDER: LAB TEST ONCE CARE 11/16/21 22:08 Completed Notify RT of Treatment ONCE CARE 11/16/21 20:19 Active Notify RT of Treatment ONCE CARE 11/16/21 22:01 Active Notify RT of Treatment ONCE CARE 11/16/21 22:03 Active Notify RT of Treatment ONCE CARE 11/16/21 22:09 Active TELEMETRY MONITORING TELE CARE 11/16/21 20:19 Active TELEMETRY MONITORING TELE CARE 11/16/21 20:38 Completed TELEMETRY MONITORING TELE CARE 11/16/21 20:38 Completed VITAL SIGNS Q4HR CARE 11/16/21 20:20 Completed CARDIAC DIET DIETARY 11/16/21 Breakfast Ordered ABG COOX Stat LAB 11/16/21 21:59 Ordered ABG COOX Stat LAB 11/16/21 22:40 Completed BMP [BASIC METABOLIC PANEL] DAILY@0600 LAB 11/17/21 05:15 Completed BMP [BASIC METABOLIC PANEL] DAILY@0600 LAB 11/18/21 06:00 Ordered BNP [NT-PROBNP] DAILY LAB 11/17/21 05:15 Completed CBC W/ AUTO DIFF Stat LAB 11/16/21 17:15 Completed COMPREHENSIVE METABOLIC PANEL Stat LAB 11/16/21 17:15 Completed LIPID PANEL Routine LAB 11/16/21 17:08 Completed MAGNESIUM Timed LAB 11/17/21 05:15 Completed NT-PROBNP Stat LAB 11/16/21 17:15 Completed PARTIAL THROMBOPLASTIN TIME Stat LAB 11/16/21 17:15 Completed PT WITH INR Stat LAB 11/16/21 17:15 Completed T4 [T4 (THYROXINE)] Routine LAB 11/16/21 17:08 Received TROPONIN I Stat LAB 11/16/21 17:15 Completed TROPONIN I Timed LAB 11/17/21 05:15 Completed TSH [THYROID STIMULATING HORMONE] Timed LAB 11/17/21 05:15 Completed 0.9 % Sodium Chloride [Saline Flush] MEDS 11/16/21 21:00 Active 1 syr IVF Q8HR Acetaminophen [Tylenol] MEDS 11/16/21 20:19 Active 650 mg PO Q4H PRN Apixaban [Eliquis] MEDS 11/17/21 09:00 Active 5 mg PO BID Atropine Sulfate Inj [Atropine Sulfate Pfs] MEDS 11/16/21 20:19 Active 0.5 mg IVP ONCE PRN Benzonatate [Tessalon Perles] MEDS 11/17/21 01:01 Active 200 mg PO TID PRN Budesonide/Formoterol Fumarate [Symbicort 160-4.5 Mcg MEDS 11/17/21 06:00 Active Inhaler] 2 puff IH RTBID Citalopram Hydrobromide [Celexa] MEDS 11/17/21 09:00 Active 20 mg PO DAILY Diltiazem HCl [Cardizem Inj] MEDS 11/16/21 16:57 Discontinued 25 mg IVP ONCE ONE Diltiazem HCl [Cardizem] MEDS 11/16/21 19:32 Discontinued 60 mg PO ONCE ONE Diltiazem HCl [Cardizem] MEDS 11/16/21 19:30 Discontinued 60 mg PO Q6HR Enoxaparin Sodium [Lovenox] MEDS 11/16/21 19:06 Discontinued 150 mg SUBCUT ONCE ONE Famotidine [Pepcid] MEDS 11/17/21 06:30 Active 40 mg PO BIDAC Furosemide [Lasix] MEDS 11/16/21 20:30 Active 20 mg IVP BIDAC Hydrocodone Bit/Acetaminophen [[place] 10-325] MEDS 11/16/21 20:32 Discontinued 1 tab PO DIRECTED PRN Hydrocodone Bit/Acetaminophen [[place] 10-325] MEDS 11/17/21 07:30 Active 1 tab PO TID PRN Nitroglycerin [Nitrostat] MEDS 11/16/21 20:19 Active 0.4 mg SL Q5MIN X 3 DOSES PRN Oxybutynin Chloride [Ditropan Xl] MEDS 11/17/21 09:00 Active 10 mg PO DAILY Polyethylene Glycol 3350 [Miralax] MEDS 11/16/21 20:32 Active 17 gm PO DAILY PRN Potassium Chloride [K-Dur] MEDS 11/17/21 08:30 Active 20 meq PO DAILYWM RESUSCITATION STATUS Routine OTHERS 11/16/21 22:40 Ordered CHEST, 1V AP ONLY Stat RADS 11/16/21 16:57 Completed Medications Generic Name Dose Route Start Last Admin Trade Name Freq PRN Reason Stop Dose Admin Acetaminophen 650 mg 11/16/21 20:19 Acetaminophen 325 Mg Tablet PO Q4H PRN Headache Hydrocodone Bitart/Acetaminophen 1 tab 11/17/21 07:30 Hydrocodone Bit/Acetaminophen 10/325 Mg Tablet PO TID PRN Pain Apixaban 5 mg 11/17/21 09:00 Apixaban 5 Mg Tab PO BID BESS Atropine Sulfate 0.5 mg 11/16/21 20:19 Atropine Sulfate Inj 1 Mg/10 Ml Disp.Syrin IVP 11/17/21 20:18 ONCE PRN Symptomatic Bradycardia Benzonatate 200 mg 11/17/21 01:01 11/17/21 01:31 Benzonatate 100 Mg Capsule PO 200 mg TID PRN Administration Cough Budesonide/Formoterol Fumarate 2 puff 11/17/21 06:00 11/17/21 05:59 Budesonide/Formoterol Fumarate 160/4.5 Mcg Inhaler IH 2 puff RTBID BESS Administration Citalopram Hydrobromide 20 mg 11/17/21 09:00 Citalopram Hydrobromide 20 Mg Tablet PO DAILY BESS Famotidine 40 mg 11/17/21 06:30 11/17/21 05:47 Famotidine 20 Mg Tablet PO 40 mg BIDAC BESS Administration Furosemide 20 mg 11/16/21 20:30 11/17/21 05:47 Furosemide Inj 20 Mg/2 Ml Vial IVP 20 mg BIDAC BESS Administration Nitroglycerin 0.4 mg 11/16/21 20:19 Nitroglycerin 0.4 Mg Tab.Subl SL Q5MIN X 3 DOSES PRN Chest Pain Oxybutynin Chloride 10 mg 11/17/21 09:00 Oxybutynin Chloride 5 Mg Tab.Er.24 PO DAILY BESS Polyethylene Glycol 17 gm 11/16/21 20:32 Polyethylene Glycol 17 Gm Powd.Pack PO DAILY PRN Constipation Potassium Chloride 20 meq 11/17/21 08:30 Potassium Chloride 20 Meq Tab PO DAILYWM BESS Sodium Chloride 1 syr 11/16/21 21:00 11/17/21 05:47 0.9% Sodium Chloride 10 Ml Disp.Syrin IVF 1 syr Q8HR BESS Administration Discontinued Medications Generic Name Dose Route Start Last Admin Trade Name Freq PRN Reason Stop Dose Admin Hydrocodone Bitart/Acetaminophen 1 tab 11/16/21 20:32 11/16/21 22:09 Hydrocodone Bit/Acetaminophen 10/325 Mg Tablet PO 1 tab DIRECTED PRN Administration Pain Diltiazem HCl 25 mg 11/16/21 16:57 11/16/21 17:03 Diltiazem Hcl Inj 25 Mg/5 Ml Vial IVP 11/16/21 16:58 25 mg ONCE ONE Administration Diltiazem HCl 60 mg 11/16/21 19:30 11/17/21 07:33 Diltiazem Hcl 60 Mg Tablet PO Not Given Q6HR [facility] Diltiazem HCl 60 mg 11/16/21 19:32 11/16/21 19:36 Diltiazem Hcl 60 Mg Tablet PO 11/16/21 19:33 60 mg ONCE ONE Administration Enoxaparin Sodium 150 mg 11/16/21 19:06 11/16/21 19:31 Enoxaparin Sodium 150 Mg/Ml Syr SUBCUT 11/16/21 19:07 150 mg ONCE ONE Administration Assessment (1) Atrial fibrillation with rapid ventricular response: Status: Acute Code(s): I48.91 - Unspecified atrial fibrillation SNOMED Code(s): 308425544843535 (2) CHF (congestive heart failure): Status: Acute Code(s): I50.9 - Heart failure, unspecified SNOMED Code(s): 63958582 (3) Obstructive sleep apnea: Status: Acute Code(s): G47.33 - Obstructive sleep apnea (adult) (pediatric) SNOMED Code(s): 90096029 Plan Plan: Resume Cardizem-attempt to get rate control Continue Furosemide for diuresis Bipap -continue Dr Shaw Cardiology consullt/echocardiogram Discuss xonditon with family member-grandson
[2021-11-17] MEDS: ELIQUIS PO SCH ×2 (09:24→20:25)
[2021-11-17] MEDS ORDERED: CARDIZEM PO SCH (09:30)
[2021-11-17] MEDS ORDERED: LANOXIN IVP ONE (12:00)
[2021-11-17] MEDS: COZAAR PO SCH (12:08)
[2021-11-17] MEDS: CARDIZEM PO SCH ×2 (14:35→20:25)
[2021-11-17] MEDS: SYMBICORT 160-4.5 MCG INHALER IH SCH (20:25)
[2021-11-18 05:38] LABS: BASOPHILS # (AUTO) 0.1 K/uL (0-0.2); BASOPHILS % (AUTO) 0.6 % (0.0-3.0); EOSINOPHILS # (AUTO) 0.1 K/ul (0.0-0.7); EOSINOPHILS % (AUTO) 0.7 % (0.0-7.0); HEMATOCRIT 45.5 % (37.0-47.0); HEMOGLOBIN 14.9 g/dl (12.0-16.0); IMMATURE GRANULOCYTE % (AUTO) 0.5 % (0.0-5.0); LYMPHOCYTES # (AUTO) 2.5 K/uL (0.60-3.4); LYMPHOCYTES % (AUTO) 29.5 (10.0-50.0); MEAN CORPUSCULAR HEMOGLOBIN 31.8 pg (27.0-31.0); MEAN CORPUSCULAR HGB CONC 32.7 (31.8-35.4); MEAN CORPUSCULAR VOLUME 97.2 fl (81.0-99.0); MONOCYTES # (AUTO) 0.7 K/uL (0.4-2.0); MONOCYTES % (AUTO) 7.7 (0-10); NEUTROPHILS # (AUTO) 5.2 K/ul (2.0-6.9); PLATELET COUNT 196 10^3/uL (140-440); RDW COEFFICIENT OF VARIATION 15.1 % (11.6-14.8); RED BLOOD COUNT 4.68 10^6/ul (4.20-5.40); WHITE BLOOD COUNT 8.57 K/ul (4.6-10.2)
[2021-11-18 05:54] LABS: ALANINE AMINOTRANSFERASE 20.6 U/L (0-35); ALBUMIN 4.35 g/dL (3.5-5.0); ALKALINE PHOSPHATASE 77.4 U/L (53-141); ASPARTATE AMINO TRANSFERASE 21.9 U/L (14-36); BILIRUBIN,TOTAL 0.88 mg/dL (0.2-1.3); BLOOD UREA NITROGEN 13.9 mg/dL (7-17); CALCIUM 9.78 mg/dL (8.4-10.2); CARBON DIOXIDE 28.8 mmol/L (22-30.0); CHLORIDE 101.9 mmol/L (98-107); CREATININE 0.7 mg/dL (0.60-1.30); SODIUM 136.8 mmol/L (134.5-145); TOTAL PROTEIN 7.28 g/dL (6.3-8.2)
[2021-11-18] MEDS: PEPCID PO SCH ×2 (05:54→16:19)
[2021-11-18] MEDS: LASIX IVP SCH (05:54)
[2021-11-18] MEDS: CARDIZEM PO SCH ×4 (06:11→20:38)
--- NOTE | 2021-11-18 08:09 | PCM.PROG ---
Date Seen by Provider: 11/18/21 Time Seen by Provider: 08:05 Subjective: my bp is up---denies any cp or increasing dyspnea--no nursing staff concerns other than elevated bp (cardizem given early) Objective: Vitals: T=98.1 F, P=56, R=16, LR=205/98, SPO2=93 HEENT: [] Neck: [supple] Lungs: [scattered rhonchi] CVS: [iurrr] Abdomen: [soft nt] Extremities: [trace edema] Neurological: [no focal deficitis] Skin: [] Lab/Tests/Diagnostic Imaging: [] (1) Atrial fibrillation with rapid ventricular response: Status: Acute Code(s): I48.91 - Unspecified atrial fibrillation SNOMED Code(s): 522576948680829 (2) CHF (congestive heart failure): Status: Acute Code(s): I50.9 - Heart failure, unspecified SNOMED Code(s): 83362342 (3) Obstructive sleep apnea: Status: Acute Code(s): G47.33 - Obstructive sleep apnea (adult) (pediatric) SNOMED Code(s): 45968305 Assessment: very pleasant patient in no distress--bp noted without symptoms Plan: monitor bp --dr tucker consulted and to see today---continue bp monitoring and telemetry--check labs in am
[2021-11-18] MEDS: K-DUR PO SCH (09:00)
[2021-11-18] MEDS: CELEXA PO SCH (09:00)
[2021-11-18] MEDS: DITROPAN XL PO SCH (09:00)
[2021-11-18] MEDS: COZAAR PO SCH (09:00)
[2021-11-18] MEDS: ELIQUIS PO SCH ×2 (09:01→20:38)
[2021-11-18] MEDS: SYMBICORT 160-4.5 MCG INHALER IH SCH ×2 (09:01→20:40)
[2021-11-18] MEDS: TESSALON PERLES PO PRN ×2 (09:11→18:43)
[2021-11-18] MEDS ORDERED: LANOXIN IVP ONE (12:25)
[2021-11-18] MEDS ORDERED: DECADRON IM ONE (12:25)
[2021-11-18] MEDS ORDERED: COREG PO ONE (12:25)
[2021-11-18] MEDS: COREG PO SCH (18:01)
[2021-11-18] MEDS: NORCO 10-325 PO PRN (21:56)
[2021-11-19 05:30] VITALS: BP 129/81; TEMP 97.8
[2021-11-19] MEDS: PEPCID PO SCH (05:39)
[2021-11-19] MEDS: LASIX IVP SCH (05:39)
[2021-11-19 05:52] LABS: BASOPHILS % (AUTO) 0.1 % (0.0-3.0); HEMOGLOBIN 14.4 g/dl (12.0-16.0); IMMATURE GRANULOCYTE % (AUTO) 0.5 % (0.0-5.0); LYMPHOCYTES % (AUTO) 12.4 (10.0-50.0); MEAN CORPUSCULAR HEMOGLOBIN 31.6 pg (27.0-31.0); MEAN CORPUSCULAR HGB CONC 32.7 (31.8-35.4); MEAN CORPUSCULAR VOLUME 96.7 fl (81.0-99.0); MONOCYTES # (AUTO) 0.2 K/uL (0.4-2.0); MONOCYTES % (AUTO) 2.5 (0-10); NEUTROPHILS # (AUTO) 6.8 K/ul (2.0-6.9); NEUTROPHILS % (AUTO) 84.5 % (42.2-75.2); PLATELET COUNT 186 10^3/uL (140-440); RDW COEFFICIENT OF VARIATION 14.6 % (11.6-14.8); RED BLOOD COUNT 4.55 10^6/ul (4.20-5.40); WHITE BLOOD COUNT 8.05 K/ul (4.6-10.2)
[2021-11-19 06:05] LABS: ALANINE AMINOTRANSFERASE 18.9 U/L (0-35); ALBUMIN 3.87 g/dL (3.5-5.0); ALKALINE PHOSPHATASE 66.4 U/L (53-141); ASPARTATE AMINO TRANSFERASE 22.5 U/L (14-36); BILIRUBIN,TOTAL 0.66 mg/dL (0.2-1.3); BLOOD UREA NITROGEN 15.6 mg/dL (7-17); CALCIUM 9.52 mg/dL (8.4-10.2); CARBON DIOXIDE 28.6 mmol/L (22-30.0); CHLORIDE 104.7 mmol/L (98-107); CREATININE 0.62 mg/dL (0.60-1.30); GLUCOSE 146.9 mg/dL (74-106); POTASSIUM 4.31 mmol/L (3.5-5.1); SODIUM 135.5 mmol/L (134.5-145); TOTAL PROTEIN 6.52 g/dL (6.3-8.2)
[2021-11-19] MEDS: K-DUR PO SCH (09:44)
[2021-11-19] MEDS: COZAAR PO SCH (09:44)
[2021-11-19] MEDS: COREG PO SCH (09:44)
[2021-11-19] MEDS: DITROPAN XL PO SCH (09:44)
[2021-11-19] MEDS: CELEXA PO SCH (09:44)
[2021-11-19] MEDS: SYMBICORT 160-4.5 MCG INHALER IH SCH (09:45)
[2021-11-19] MEDS: CARDIZEM PO SCH (09:45)
[2021-11-19] MEDS: ELIQUIS PO SCH (09:45)
[2021-11-19] MEDS: NORCO 10-325 PO PRN (09:52)
[2021-11-19] MEDS: TESSALON PERLES PO PRN (09:52)
--- NOTE | 2021-11-19 10:21 | PCM.DC ---
Final Diagnosis: (1) Atrial fibrillation with rapid ventricular response: Status: Acute Code(s): I48.91 - Unspecified atrial fibrillation SNOMED Code(s): 684005218192218 (2) CHF (congestive heart failure): Status: Acute Code(s): I50.9 - Heart failure, unspecified SNOMED Code(s): 56945917 (3) Obstructive sleep apnea: Status: Acute Code(s): G47.33 - Obstructive sleep apnea (adult) (pediatric) SNOMED Code(s): 69593759 Medications at Discharge: Ambulatory Orders Medication Instructions Recorded hydrocodone 10 mg-acetaminophen 1 ea PO DIRECTED PRN 03/03/18 325 mg tablet simvastatin 20 mg tablet (Zocor) 20 mg PO DAILY #90 tab-cap 05/12/18 citalopram 20 mg tablet (Celexa) 20 mg PO DAILY 90 Days #90 tab-cap 10/27/18 pantoprazole 40 mg tablet,delayed 40 mg PO DAILY #90 tab-cap 12/07/18 release (Protonix) potassium chloride 20 mEq 20 meq PO DAILY #90 tab-cap 12/07/18 tablet,extended release(part/cryst) (Klor-Con M) polyethylene glycol 3350 17 gram 17 g PO DAILY PRN 12/14/18 oral powder packet (Miralax) oxybutynin chloride 10 mg 10 mg PO DAILY #90 tab-cap 12/21/18 tablet,extended release 24 hr (Ditropan XL) fluticasone propionate 50 1 spray NS BID #1 vial 01/24/19 mcg/actuation nasal spray,suspension carvedilol 12.5 mg tablet (Coreg) 12.5 mg PO BID #180 tab-cap 02/23/19 fluticasone furoate 100 1 ea INHALATION DAILY #60 ih 03/25/19 mcg-vilanterol 25 mcg/dose inhalation powder (Breo Ellipta) fluticasone furoate 100 1 puff INHALATION DAILY #1 vial 03/31/19 mcg-vilanterol 25 mcg/dose inhalation powder (Breo Ellipta) budesonide-formoterol HFA 160 2 puff INHALATION BID 05/04/21 mcg-4.5 mcg/actuation aerosol inhaler (Symbicort) famotidine 40 mg tablet (Pepcid) 40 mg PO BID 05/04/21 loratadine 10 mg tablet (Claritin) 10 mg PO QDAY 05/04/21
--- NOTE | 2021-11-19 13:28 | ECHO2D ---
Date of Exam: 11/17/2021 Ordering Physician: HOSPITALIST/ELIZABETH EDOUARD APRN Room #: 110 Reason for Echo: ATRIAL FIBRILLATION, CHF M-Mode Normal Adult Results LV Dimensions Normal Adult Results AoV Opening excursions >1.6 >1.6 LVEDD-base- 3.5-5.8 4.7 Ao root dimensions 2.0-3.7 3.4 LVESD-base- 3.1-4.6 L. Atrium dimensions 1.9-3.8 5.6 Post. Wall thickness 0.8-1.1 1.4 IV septum (thickness) 0.7-1.2 1.6 Post. Wall excursion 0.72-1.3 0.9 Septal motion 0.3 Systolic motion R. Ventricular cavity 1.5-2.0 5.0 LVEF 60% 40-45% Paradoxical septal wall motion NORMAL 2-D : ENLARGED RIGHT VENTRICLE AND LEFT ATRIAL CAVITIES--HYPOKINETIC SEPTAL WALL, NO EFFUSION, NO THROMBUS, VALVES--NORMAL M-MODE: MV: NORMAL AV: NORMAL TV: NORMAL PV: CHAMBER SIZE: ENLARGED RIGHT VENTRICLE AND LEFT ATRIAL CAVITIES WALL MOTION: HYPOKINETIC LEFT VENTRICLE PERICARDIUM: NORMAL INTERPRETATION: 1. MODERATE LEFT VENTRICLE HYPERTROPHY WITH STIFF LEFT VENTRICLE EJECTION FRACTION 40 TO 45% 2. NORMAL VALVES 3. ENLARGED LEFT ATRIAL AND RIGHT VENTRICLE CAVITIES 4. MARKEDLY ENLARGED LEFT ATRIAL CAVITY (5.6 CM) MTDD
--- NOTE | 2021-11-19 13:43 | PCM.DC ---
Final Diagnosis: Admit 11/16/21 Discharge 11/19/21 Admit dx - A-fib with RVR, mild CHF Discharge dx - A-fib with controlled rate. CHF flare -resolved. HPI - See admit note. Arrived to ED with edema, mild dyspnea, new onset A-fib with RVR. Physical Exam Appearance: Well-appearing and Obese Ill-appearing: None Pain Distress: None Eyes: KONSTANTIN ENT: Oropharynx normal Neck: Supple Respiratory: Airway patent and Breath sounds clear Cardiovascular: Irregular rhythm GI/: Soft and Nontender Musculoskeletal: Normal strength, ROM intact and Edema (mild, chronic LE edema due to obesity) Skin: Warm and Dry Neurological: Sensation intact, Motor intact and Alert Psychiatric: Affect appropriate and Mood appropriate (1) Atrial fibrillation with rapid ventricular response: Status: Acute Code(s): I48.91 - Unspecified atrial fibrillation SNOMED Code(s): 191767624414827 (2) CHF (congestive heart failure): Status: Acute Code(s): I50.9 - Heart failure, unspecified SNOMED Code(s): 62192112 (3) Obstructive sleep apnea: Status: Acute Code(s): G47.33 - Obstructive sleep apnea (adult) (pediatric) SNOMED Code(s): 27296351 Reason for Hospitalization: New onset A-fib with RVR. Mild CHF. Chronic JAMIE. Prognosis/Condition at Discharge: Improved, stable. Medications at Discharge: Ambulatory Orders Medication Instructions Recorded hydrocodone 10 mg-acetaminophen 1 ea PO DIRECTED PRN 03/03/18 325 mg tablet citalopram 20 mg tablet (Celexa) 20 mg PO DAILY 90 Days #90 tab-cap 10/27/18 oxybutynin chloride 10 mg 10 mg PO DAILY #90 tab-cap 12/21/18 tablet,extended release 24 hr (Ditropan XL) fluticasone furoate 100 1 ea INHALATION DAILY #60 ih 03/25/19 mcg-vilanterol 25 mcg/dose inhalation powder (Breo Ellipta) budesonide-formoterol HFA 160 2 puff INHALATION BID 05/04/21 mcg-4.5 mcg/actuation aerosol inhaler (Symbicort) famotidine 40 mg tablet (Pepcid) 40 mg PO BID 05/04/21 apixaban 5 mg tablet (Eliquis) 5 mg PO BID 30 Days #60 tab 01/31/22 carvedilol 25 mg tablet (Coreg) 25 mg PO BID #30 tab 11/19/21 diltiazem HCl 60 mg tablet 60 mg PO TID #90 tab 11/19/21 (Cardizem) furosemide 20 mg tablet (Lasix) 20 mg PO DAILY #30 tab 11/19/21 losartan 50 mg tablet 50 mg PO DAILY 30 Days #30 tab 11/19/21 potassium chloride 20 mEq 20 meq PO DAILY #90 tab-cap 11/19/21 tablet,extended release(part/cryst) (Klor-Con M) Lab/Diagnostics: Laboratory Tests 11/16/21 11/16/21 11/16/21 17:08 17:08 17:15 WBC 8.96 RBC 4.57 Hgb 14.5 Hct 44.2 MCV 96.7 MCH 31.7 H MCHC 32.8 RDW Coeff of Yara 15.0 H Plt Count 200 Immature Gran % (Auto) 0.7 Neut % (Auto) 66.8 Lymph % (Auto) 25.2 [place] % (Auto) 5.8 Eos % (Auto) 1.1 Baso % (Auto) 0.4 Neut # (Auto) 6.0 Lymph # (Auto) 2.3 [place] # (Auto) 0.5 Eos # (Auto) 0.1 Baso # (Auto) 0.0 Immature Gran # (Auto) 0.1 PT INR APTT Puncture Site Base Excess O2 Saturation ABG pH ABG pCO2 ABG pO2 ABG HCO3 ABG Total CO2 Imtiaz Test Hemoglobin Oxyhemoglobin Carboxyhemoglobin Total Hemoglobin FiO2 % Sodium Potassium Chloride Carbon Dioxide Anion Gap BUN Creatinine Estimated GFR (MDRD) BUN/Creatinine Ratio Glucose Calcium Magnesium Total Bilirubin AST ALT Alkaline Phosphatase Troponin I NT-Pro-B Natriuret Pep Total Protein Albumin Globulin Albumin/Globulin Ratio Triglycerides 152.3 H Cholesterol 102.9 LDL Cholesterol, Calc 44 VLDL Cholesterol 30 HDL Cholesterol 28.6 L Cholesterol/HDL Ratio 3.6 L TSH Thyroxine (T4) 7.0 SARS CoV-2 RNA Rapid MAIRA 11/16/21 11/16/21 11/16/21 17:15 17:15 17:15 WBC RBC Hgb Hct MCV MCH MCHC RDW Coeff of Yara Plt Count Immature Gran % (Auto) Neut % (Auto) Lymph % (Auto) [place] % (Auto) Eos % (Auto) Baso % (Auto) Neut # (Auto) Lymph # (Auto) [place] # (Auto) Eos # (Auto) Baso # (Auto) Immature Gran # (Auto) PT 11.3 H INR 1.09 APTT 26.1 Puncture Site Base Excess O2 Saturation ABG pH ABG pCO2 ABG pO2 ABG HCO3 ABG Total CO2 Imtiaz Test Hemoglobin Oxyhemoglobin Carboxyhemoglobin Total Hemoglobin FiO2 % Sodium 135.9 Potassium 3.65 Chloride 102.8 Carbon Dioxide 26.1 Anion Gap 10.65 BUN 20.1 H Creatinine 0.80 Estimated GFR (MDRD) 70.00 BUN/Creatinine Ratio 25.12 Glucose 129.6 H Calcium 9.56 Magnesium Total Bilirubin 0.44 AST 21.9 ALT 21.7 Alkaline Phosphatase 68.7 Troponin I < 0.012 NT-Pro-B Natriuret Pep 1830.000 H Total Protein 6.73 Albumin 4.05 Globulin 2.68 Albumin/Globulin Ratio 1.51 Triglycerides Cholesterol LDL Cholesterol, Calc VLDL Cholesterol HDL Cholesterol Cholesterol/HDL Ratio TSH Thyroxine (T4) SARS CoV-2 RNA Rapid MAIRA 11/16/21 11/16/21 11/17/21 18:18 22:40 05:15 WBC RBC Hgb Hct MCV MCH MCHC RDW Coeff of Yara Plt Count Immature Gran % (Auto) Neut % (Auto) Lymph % (Auto) [place] % (Auto) Eos % (Auto) Baso % (Auto) Neut # (Auto) Lymph # (Auto) [place] # (Auto) Eos # (Auto) Baso # (Auto) Immature Gran # (Auto) PT INR APTT Puncture Site [place] Base Excess 5.4 H O2 Saturation 96.0 ABG pH 7.46 H ABG pCO2 41.0 ABG pO2 77.0 L ABG HCO3 29.2 H ABG Total CO2 30.5 H Imtiaz Test + Hemoglobin 0 Oxyhemoglobin 92.6 L Carboxyhemoglobin 6.3 H Total Hemoglobin 14.6 FiO2 % 21.0 Sodium 137.8 Potassium 3.89 Chloride 103.6 Carbon Dioxide 29.1 Anion Gap 8.99 BUN 19.6 H Creatinine 0.69 Estimated GFR (MDRD) 83.00 BUN/Creatinine Ratio 28.40 Glucose 94.0 Calcium 9.42 Magnesium Total Bilirubin AST ALT Alkaline Phosphatase Troponin I NT-Pro-B Natriuret Pep Total Protein Albumin Globulin Albumin/Globulin Ratio Triglycerides Cholesterol LDL Cholesterol, Calc VLDL Cholesterol HDL Cholesterol Cholesterol/HDL Ratio TSH Thyroxine (T4) SARS CoV-2 RNA Rapid MAIRA Negative 11/17/21 11/17/21 11/18/21 05:15 05:15 05:15 WBC 8.57 RBC 4.68 Hgb 14.9 Hct 45.5 MCV 97.2 MCH 31.8 H MCHC 32.7 RDW Coeff of Yara 15.1 H Plt Count 196 Immature Gran % (Auto) 0.5 Neut % (Auto) 61.0 Lymph % (Auto) 29.5 [place] % (Auto) 7.7 Eos % (Auto) 0.7 Baso % (Auto) 0.6 Neut # (Auto) 5.2 Lymph # (Auto) 2.5 [place] # (Auto) 0.7 Eos # (Auto) 0.1 Baso # (Auto) 0.1 Immature Gran # (Auto) 0.0 PT INR APTT Puncture Site Base Excess O2 Saturation ABG pH ABG pCO2 ABG pO2 ABG HCO3 ABG Total CO2 Imtiaz Test Hemoglobin Oxyhemoglobin Carboxyhemoglobin Total Hemoglobin FiO2 % Sodium Potassium Chloride Carbon Dioxide Anion Gap BUN Creatinine Estimated GFR (MDRD) BUN/Creatinine Ratio Glucose Calcium Magnesium 1.93 Total Bilirubin AST ALT Alkaline Phosphatase Troponin I 0.013 NT-Pro-B Natriuret Pep 1730.000 H Total Protein Albumin Globulin Albumin/Globulin Ratio Triglycerides Cholesterol LDL Cholesterol, Calc VLDL Cholesterol HDL Cholesterol Cholesterol/HDL Ratio TSH 2.730 Thyroxine (T4) SARS CoV-2 RNA Rapid MAIRA 11/18/21 11/19/21 11/19/21 05:15 05:19 05:19 WBC 8.05 RBC 4.55 Hgb 14.4 Hct 44.0 MCV 96.7 MCH 31.6 H MCHC 32.7 RDW Coeff of Yara 14.6 Plt Count 186 Immature Gran % (Auto) 0.5 Neut % (Auto) 84.5 H Lymph % (Auto) 12.4 [place] % (Auto) 2.5 Eos % (Auto) 0.0 Baso % (Auto) 0.1 Neut # (Auto) 6.8 Lymph # (Auto) 1.0 [place] # (Auto) 0.2 L Eos # (Auto) 0.0 Baso # (Auto) 0.0 Immature Gran # (Auto) 0.0 PT INR APTT Puncture Site Base Excess O2 Saturation ABG pH ABG pCO2 ABG pO2 ABG HCO3 ABG Total CO2 Imtiaz Test Hemoglobin Oxyhemoglobin Carboxyhemoglobin Total Hemoglobin FiO2 % Sodium 136.8 135.5 Potassium 4.00 4.31 Chloride 101.9 104.7 Carbon Dioxide 28.8 28.6 Anion Gap 10.10 6.51 BUN 13.9 15.6 Creatinine 0.70 0.62 Estimated GFR (MDRD) 81.00 94.00 BUN/Creatinine Ratio 19.85 25.16 Glucose 96.0 146.9 H Calcium 9.78 9.52 Magnesium Total Bilirubin 0.88 0.66 AST 21.9 22.5 ALT 20.6 18.9 Alkaline Phosphatase 77.4 66.4 Troponin I NT-Pro-B Natriuret Pep Total Protein 7.28 6.52 Albumin 4.35 3.87 Globulin 2.93 2.65 Albumin/Globulin Ratio 1.48 1.46 Triglycerides Cholesterol LDL Cholesterol, Calc VLDL Cholesterol HDL Cholesterol Cholesterol/HDL Ratio TSH Thyroxine (T4) SARS CoV-2 RNA Rapid MAIRA Education Provided to Patient and Family: Afib, CHF. Follow-ups: EMMA Samson within a week. Dr. Shaw has consulted and will be available for outpatient consult via PCP. Discharge Disposition: Home Hospital Course: 1. New onset A-fib with RVR. Rate controlled with IV then po cardizem. Did not convert to NSR. No ischemia, no ME. 2. Mild CHF secondary to A-fib with RVR. Improved with diuretics, as did the LE edema. 3. Obstructive sleep apnea (JAMIE) - chronic, has home BiPap. Dr. Shaw consulted and did echo and med changes. Continued oral cardizem, and some other med for BP control. Eliquis. Lasix for diuresis. Echo revealed RVH and cor pulmonale with dilated left atrium. Should be a dictated report soon. Plan: Discharge home. F/U with PCP as directed. Diet- healthy heart, ARTIE, actvitity as tolerated. See med. list. This discharge process consisted of a 20 minute [id number] evaluation with total of 40 minutes for discharge completion.
[2021-11-20] MEDS ORDERED: LASIX TAB PO SCH (06:30)
== END 2021-11-19 12:00 | disposition home or self-care (01) | DRG 309 ==
LOC: ED 16:40 → MEDSURG A 19:35
PROVIDERS: ADMIT Emergency Medicine; ATTEND Emergency Medicine
DX: Z79.899 Other long term (current) drug therapy; Z51.81 Encounter for therapeutic drug level monitoring; E66.9 Obesity, unspecified; R22.42 Localized swelling, mass and lump, left lower limb; Z72.0 Tobacco use; I51.7 Cardiomegaly; I48.91 Unspecified atrial fibrillation; Z20.822 Contact with and (suspected) exposure to COVID-19; J44.9 Chronic obstructive pulmonary disease, unspecified; R06.02 Shortness of breath; Z68.43 Body mass index [BMI] 50.0-59.9, adult; I27.81 Cor pulmonale (chronic); G47.33 Obstructive sleep apnea (adult) (pediatric); Z79.01 Long term (current) use of anticoagulants; I50.9 Heart failure, unspecified

== ENCOUNTER 2022-07-07 09:16 | Inpatient (IN) ==
[2022-07-07] MEDS ORDERED: LASIX IVP STA (09:45)
[2022-07-07 09:55] LABS: ABG O2 HGB 93.3 % (95-100); BEecf 0.9 (-2.0-3.0); COHb 4.7 (0.5-1.5); HCO3 23.9 (21-28); MetHb 1.2 (0-1.5); TCO2 24.8 (19-24); sO2 99.3 % (94-98); tHb 14.9 g/dl (11.7-17.4)
[2022-07-07 09:57] LABS: ABG PH 7.51 (7.35-7.45)
[2022-07-07 10:08] LABS: BASOPHILS % (AUTO) 0.4 % (0.0-3.0); EOSINOPHILS % (AUTO) 0.3 % (0.0-7.0); HEMATOCRIT 47.4 % (37.0-47.0); HEMOGLOBIN 14.6 g/dl (12.0-16.0); IMMATURE GRANULOCYTE % (AUTO) 0.4 % (0.0-5.0); LYMPHOCYTES # (AUTO) 1.9 K/uL (0.60-3.4); LYMPHOCYTES % (AUTO) 17.1 (10.0-50.0); MEAN CORPUSCULAR HEMOGLOBIN 30.5 pg (27.0-31.0); MEAN CORPUSCULAR HGB CONC 30.8 (31.8-35.4); MONOCYTES # (AUTO) 0.9 K/uL (0.4-2.0); MONOCYTES % (AUTO) 7.9 (0-10); NEUTROPHILS % (AUTO) 73.9 % (42.2-75.2); PLATELET COUNT 178 10^3/uL (140-440); RDW COEFFICIENT OF VARIATION 15.2 % (11.6-14.8); RED BLOOD COUNT 4.79 10^6/ul (4.20-5.40); WHITE BLOOD COUNT 10.85 K/ul (4.6-10.2)
[2022-07-07 10:20] LABS: ALANINE AMINOTRANSFERASE 17.3 U/L (0-35); ALBUMIN 4.08 g/dL (3.5-5.0); ASPARTATE AMINO TRANSFERASE 20.9 U/L (14-36); BILIRUBIN,TOTAL 0.95 mg/dL (0.2-1.3); BLOOD UREA NITROGEN 16.6 mg/dL (7-17); CALCIUM 9.23 mg/dL (8.4-10.2); CARBON DIOXIDE 24.8 mmol/L (22-30.0); CREATININE 0.81 mg/dL (0.60-1.30); GLUCOSE 117.3 mg/dL (74-106); POTASSIUM 4.37 mmol/L (3.5-5.1); SODIUM 133.7 mmol/L (134.5-145); TOTAL PROTEIN 7.46 g/dL (6.3-8.2)
[2022-07-07] MEDS ORDERED: MORPHINE 2 MG/ML SYRINGE IVP STA (10:20)
[2022-07-07 10:31] LABS: TROPONIN I < 0.012 ng/ml (0.0000-0.120)
--- NOTE | 2022-07-07 11:38 | ED.PDOC ---
General ED Provider: Dr. KIAH BORGES Chief Complaint: Shortness of Air Stated Complaint: im coughing up thick green mucous and my chest hurts Time Seen by Provider: 07/07/22 11:34 Mode of Arrival: Wheelchair Information Source: Patient Exam Limitations: No limitations Primary Care Provider: AARON EDOUARD Nursing and Triage Documentation Reviewed and Agree: Yes Does patient meet sepsis criteria?: No System Inflammatory Response Syndrome: Not Applicable Sepsis Protocol: For patient's 13 years and over: Temp is 96.8 and below OR 101 and greater Pulse >90 BPM Resp >20/minute Acutely Altered Mental Status Are patient's symptoms suggestive of a new infection, such as: -Pneumonia -Skin, Soft Tissue -Endocarditis -UTI -Bone, Joint Infection -Implantable Device -Acute Abdominal Infection -Wound Infection -Meningitis -Blood Stream Catheter Infection -Unknown Respiratory Complaint Exam Respiratory Complaint/Exam Onset/Duration: 3 days Symptoms Are: Still present Timing: Constant Initial Severity: Mild Current Severity: Moderate Location: Chest Character: Reports Productive cough Aggravating: Reports URI Alleviating: Reports Bronchodilators Associated Signs and Symptoms: Reports Dyspnea, Chest pain and Wheezing Related History: Reports Similar episode History of Healthcare-Acquired Pneumonia: No Related Surgical History: Reports None Pulmonary Embolism Risk Factors: None Pseudomonas Risk Factors: Reports Chronic Lung Disease Status Asthmaticus Risk Factors: Reports None Home Oxygen Use: No Recent Stress Test: No Recent Echo/LV Function: No Current Antibiotic Use: No Current Asthma Medication Use: No Respiratory Distress: Mild Inadequate Respiratory Effort: No Dysphagia Present: No Stridor Present: No JVD Present: No Accessory Muscle Use: No Retractions: Not Present Diminished Breath Sounds: No Sinus Tenderness: None Grunting Respirations: No Kussmaul Respirations: No Differential Diagnoses: CHF, Chest Wall Pain and COPD Exacerbation Non-Traumatic Chest Pain Syncope: EKG Performed Review of Systems Review Of Systems Constitutional: Reports No symptoms Ears, Nose, Mouth, Throat: Reports No symptoms Respiratory: Reports Cough and Short of air Cardiac: Reports Chest pain GI: Reports No symptoms : Reports No symptoms Musculoskeletal: Reports No symptoms Skin: Reports No symptoms Endocrine: Reports No symptoms Hematologic/Lymphatic: Reports No symptoms All Other Systems: Reviewed and Negative [facility] Medical History Arthritis Asthma Chronic obstructive pulmonary disease Gastroesophageal reflux disease Gastrointestinal problem Hyperlipidemia Hypertension Seasonal allergies Family History Mother Diabetes Hypertension Other Sinus problem Social History Smoking and tobacco status: Current every day smoker Alcohol intake: never Substance use type: does not use Seatbelt use: always Drives intoxicated or rides with intoxicated class b truck driver: No Water heater temperature set < 120 degrees: Yes Working smoke detector in home: Yes Fire extinguisher in home: Yes Carbon monoxide detector in home: Yes Surgical History Cataract extraction and insertion of intraocular lens History of dental surgery History of joint surgery History of tubal ligation Status post appendectomy Status post cholecystectomy Status post hysterectomy Female Reproductive History Menstrual Hx Hysterectomy: Yes Hx Tubal Ligation: Yes Physical Exam Physical Exam Appearance: Reports Well-appearing Ill-appearing: None Pain Distress: Mild Eyes: Reports KONSTANTIN, EOMI and Conjunctiva clear ENT: Reports Ears normal, Nose normal and Oropharynx normal Neck: Supple Respiratory: Reports Airway patent, Breath sounds clear, Rhonchi and Wheezes Cardiovascular: Reports RRR, Pulses normal and No rub GI/: Reports Soft, Nontender, No masses and Bowel sounds normal Musculoskeletal: Reports Normal strength, ROM intact, No edema and No calf tenderness Skin: Reports Warm, Dry and Normal color Neurological: Reports Sensation intact, Motor intact, Reflexes intact, Cranial nerves intact, Alert and Oriented Psychiatric: Reports Affect appropriate, Mood appropriate and Anxious Interpretation Radiology Interpretation Radiology Interpretation By: Radiologist Radiology Results: Negative Exam Interpreted: CXR and CT Scan EKG Interpretation Time of EKG #1: 11:38 Rate: Tachy Rhythm: Other Ectopy: None [place]: NL ST Segment: Normal Interpretation: afib with avr Critical Care Note Critical Care Note Total Critical Care Time (mins): 0 Course Course Hematology/Chemistry: 07/07/22 10:01 07/07/22 10:01 Orders, Labs, Meds: Lab Review 07/07/22 07/07/22 07/07/22 09:45 09:50 10:01 WBC RBC Hgb Hct MCV MCH MCHC RDW Coeff of Yara Plt Count Immature Gran % (Auto) Neut % (Auto) Lymph % (Auto) [place] % (Auto) Eos % (Auto) Baso % (Auto) Neut # (Auto) Lymph # (Auto) [place] # (Auto) Eos # (Auto) Baso # (Auto) Immature Gran # (Auto) Puncture Site Rr Base Excess 0.9 O2 Saturation 99.3 H ABG pH 7.51 H* ABG pCO2 30.0 L ABG pO2 134.0 H ABG HCO3 23.9 ABG Total CO2 24.8 H Imtiaz Test Pos Hemoglobin 1.2 Oxyhemoglobin 93.3 L Carboxyhemoglobin 4.7 H Total Hemoglobin 14.9 FiO2 % 21.0 Sodium 133.7 L Potassium 4.37 Chloride 103.0 Carbon Dioxide 24.8 Anion Gap 10.27 BUN 16.6 Creatinine 0.81 Estimated GFR (MDRD) 69.00 BUN/Creatinine Ratio 20.49 Glucose 117.3 H Lactic Acid Calcium 9.23 Total Bilirubin 0.95 AST 20.9 ALT 17.3 Alkaline Phosphatase 100.0 Troponin I < 0.012 NT-Pro-B Natriuret Pep Total Protein 7.46 Albumin 4.08 Globulin 3.38 Albumin/Globulin Ratio 1.20 D-Dimer SARS CoV-2 RNA Rapid MAIRA Negative 07/07/22 07/07/22 07/07/22 10:01 10:01 10:01 WBC 10.85 H RBC 4.79 Hgb 14.6 Hct 47.4 H MCV 99.0 MCH 30.5 MCHC 30.8 L RDW Coeff of Yara 15.2 H Plt Count 178 Immature Gran % (Auto) 0.4 Neut % (Auto) 73.9 Lymph % (Auto) 17.1 [place] % (Auto) 7.9 Eos % (Auto) 0.3 Baso % (Auto) 0.4 Neut # (Auto) 8.0 H Lymph # (Auto) 1.9 [place] # (Auto) 0.9 Eos # (Auto) 0.0 Baso # (Auto) 0.0 Immature Gran # (Auto) 0.0 Puncture Site Base Excess O2 Saturation ABG pH ABG pCO2 ABG pO2 ABG HCO3 ABG Total CO2 Imtiaz Test Hemoglobin Oxyhemoglobin Carboxyhemoglobin Total Hemoglobin FiO2 % Sodium Potassium Chloride Carbon Dioxide Anion Gap BUN Creatinine Estimated GFR (MDRD) BUN/Creatinine Ratio Glucose Lactic Acid 0.85 Calcium Total Bilirubin AST ALT Alkaline Phosphatase Troponin I NT-Pro-B Natriuret Pep Total Protein Albumin Globulin Albumin/Globulin Ratio D-Dimer 1027.69 H SARS CoV-2 RNA Rapid MAIRA 07/07/22 10:05 WBC RBC Hgb Hct MCV MCH MCHC RDW Coeff of Yara Plt Count Immature Gran % (Auto) Neut % (Auto) Lymph % (Auto) [place] % (Auto) Eos % (Auto) Baso % (Auto) Neut # (Auto) Lymph # (Auto) [place] # (Auto) Eos # (Auto) Baso # (Auto) Immature Gran # (Auto) Puncture Site Base Excess O2 Saturation ABG pH ABG pCO2 ABG pO2 ABG HCO3 ABG Total CO2 Imtiaz Test Hemoglobin Oxyhemoglobin Carboxyhemoglobin Total Hemoglobin FiO2 % Sodium Potassium Chloride Carbon Dioxide Anion Gap BUN Creatinine Estimated GFR (MDRD) BUN/Creatinine Ratio Glucose Lactic Acid Calcium Total Bilirubin AST ALT Alkaline Phosphatase Troponin I NT-Pro-B Natriuret Pep 2130.000 H Total Protein Albumin Globulin Albumin/Globulin Ratio D-Dimer SARS CoV-2 RNA Rapid MAIRA Orders Category Date Time Status ABG DRAW REQUEST Stat CARDIO 07/07/22 09:38 Completed EKG-(ED ONLY) Stat CARDIO 07/07/22 09:37 Completed NPO REMINDER: IMAGING ONCE CARE 07/07/22 10:44 Completed ED DICE TABLE OPERATOR APPLIED .ONCE EMERGENCY 07/07/22 09:37 Active ED IV/MEDIPORT/POWERPORT .ONCE EMERGENCY 07/07/22 09:38 Active ABG COOX Stat LAB 07/07/22 09:50 Completed BLOOD CULTURE (ED ONLY) Stat LAB 07/07/22 10:01 Received CBC W/ AUTO DIFF Stat LAB 07/07/22 10:01 Completed COMPREHENSIVE METABOLIC PANEL Stat LAB 07/07/22 10:01 Completed D-DIMER Stat LAB 07/07/22 10:01 Completed LACTIC ACID Stat LAB 07/07/22 10:01 Completed PRO-BNP [NT-PROBNP] Stat LAB 07/07/22 10:05 Completed SARS COV-2 RNA RAPID MAIRA Stat LAB 07/07/22 09:45 Completed TROPONIN I Stat LAB 07/07/22 10:01 Completed 0.9 % Sodium Chloride [Saline Flush] MEDS 07/07/22 09:37 Active 1 syr IVF PRN PRN 5 mg/Hr- Titrate Per Provider MEDS 07/07/22 12:00 Ordered Diltiazem HCl [Cardizem] 125 mg 0.9 % Sodium Chloride [Sodium Chloride 100Ml] 100 ml IV TITRATION Diltiazem HCl [Cardizem Inj] MEDS 07/07/22 11:51 Stat 15 mg IVP ONCE STA Furosemide [Lasix] MEDS 07/07/22 09:45 Discontinued 40 mg IVP ONCE STA Morphine Sulfate [Morphine 2 mg/ml Syringe] MEDS 07/07/22 10:20 Discontinued 2 [address] IVP ONCE STA CT CHEST PE PROTOCOL Stat RADS 07/07/22 10:44 Completed CXR [CHEST, 1V AP ONLY] Stat RADS 07/07/22 09:37 Taken Medications Generic Name Dose Route Start Last Admin Trade Name Freq PRN Reason Stop Dose Admin Sodium Chloride 1 syr 07/07/22 09:37 07/07/22 10:16 0.9% Sodium Chloride 10 Ml Disp.Syrin IVF 1 syr PRN PRN Administration To flush IV Discontinued Medications Generic Name Dose Route Start Last Admin Trade Name Freq PRN Reason Stop Dose Admin Furosemide 40 mg 07/07/22 09:45 07/07/22 10:16 Furosemide Inj 40 Mg/4 Ml Vial IVP 07/07/22 09:46 40 mg ONCE STA Administration Morphine Sulfate 2 mg 07/07/22 10:20 07/07/22 10:33 Morphine Sulfate 2 Mg/Ml Syringe IVP 07/07/22 10:21 2 mg ONCE STA Administration Vital Signs: Temp Pulse Resp BP Pulse Ox 07/07/22 09:18 97.7 F 111 H 22 H 114/78 94 L Discharge Plan Discharge Patient Disposition: ADMITTED INPATIENT Discharge Problem: Atrial fibrillation with rapid ventricular response, Acute exacerbation of chronic obstructive pulmonary disease Prescriptions: No Action citalopram [Celexa] 20 MG tablet 20 mg PO DAILY 90 Days Qty: 90 0RF hydrocodone-acetaminophen 1 EACH tablet 1 ea PO TID potassium chloride [Klor-Con M20] 20 MEQ tablet,ER particles/crystals 20 meq PO DAILY Qty: 90 1RF carvedilol [Coreg] 25 mg Tablet 25 mg PO BID Qty: 30 0RF Rx Instructions: must administer with a meal/food losartan 50 mg Tablet 50 mg PO DAILY azelastine 0.05 % drops 1 drp BOTHEYES BID pantoprazole 40 mg tablet,delayed release (DR/EC) 40 mg PO DAILY simvastatin [Zocor] 20 mg Tablet 20 mg PO DAILY lorazepam 1 mg tablet 1 mg PO PRN PRN (Reason: Anxiety) fluticasone propionate 50 mcg/actuation spray,suspension 50 mcg INTRANASAL BID loratadine [Claritin] 10 mg Tablet 10 mg PO DAILY tizanidine 2 mg Capsule 2 mg PO BID omega 5-jyw-aib-fish oil [Fish Oil] 1,000 mg (120 mg-180 mg) Capsule 1 cap PO DAILY Spiriva Respimat 2.5 mcg/actuation Mist 2 puff INHALATION DAILY Eliquis 5 mg Tablet 5 mg PO BID oxybutynin chloride [Ditropan XL] 10 MG tablet extended release 24hr 15 mg PO DAILY furosemide [Lasix] 20 mg tablet 20 mg PO PRN PRN (Reason: fluid) budesonide-formoterol [Symbicort] 160-4.5 mcg/actuation HFA aerosol inhaler 2 puff inhalation BID famotidine [Pepcid] 40 mg tablet 40 mg PO BID Did you review [place] ARSON INVESTIGATOR?: Not Applicable ED Provider: KIAH ROBIN Condition: Fair Physician Progress Note: []
--- NOTE | 2022-07-07 11:43 | CT ---
Exam: CT pulmonary angiography. 3D volume rendered images and/or MIP reconstructions were performed on an independent workstat ion. HISTORY: Chest pain and elevated D-dimer. COMPARISON: None. CONTRAST: 75 mL of Omnipaque 350. TECHNIQUE: Contiguous axial images at 3 mm intervals were obtained from the base of the lungs to the upper chest. IV contrast was given. 3D volume rendered images were also reviewed and saved to PACS . Coronal and saggital MPR reformats and coronal oblique MIP reformats were reviewed. FINDINGS: Angiography: Pulmonary arteries: The pulmonary arteries are well opacified. There are no filling defects to jama ggest acute pulmonary embolus. Aorta: The aorta is also well opacified. There is no aneurysm or dissection. Vascular calcificati ons present in the aorta. The great vessels are within normal limits. Heart: The heart size is within normal limits. Faint vascular calcifications present associated w ith coronary arteries. Mediastinum: No mediastinal or hilar adenopathy is noted. Lungs: The lungs are clear without consolidation or effusion. Respiratory motion causes some limita tion of the pulmonary parenchyma. Airways are widely patent. Pulmonary interstitium appears normal. There is no pleural thickening. Soft tissues: Limited views of the upper abdomen are available. Additional findings: Degenerative changes noted in the lower thoracic and upper lumbar spine IMPRESSION: 1. No CT evidence of acute pulmonary embolus or aortic dissection. 2. Atherosclerotic vascular calcifications present in the aortic arch and coronary arteries. All CT scans are performed using dose optimization techniques as appropriate to the performed exam an d include at least one of the following: Automated exposure control, adjustment of the mA and/or kV according t o size, and the use of iterative reconstruction technique.
[2022-07-07] MEDS ORDERED: CARDIZEM INJ IVP STA (11:51)
[2022-07-07] MEDS ORDERED: ATIVAN PO PRN (11:58)
[2022-07-07] MEDS: CARDIZEM 125 MG in SODIUM CHLORIDE 100ML 100 ML IV SCH (12:18)
[2022-07-07] MEDS: ROCEPHIN 1 GM/50 ML D5W 1 GM/50 ML BAG IV SCH (12:53)
--- NOTE | 2022-07-07 13:06 | PCM ---
Chief Complaint Chief Complaint: im coughing with thick yellow sputum and my chest hurts History of Present Illness History of Present Illness: this is a 77 yr old lady with hx of copd, chf, and afib who presented to the ed with prod cough with chest discomfort and sob for 3-4 days. Review of Systems Constitutional: Reports Fatigue Ears: Reports No symptoms Nose: Reports No symptoms Throat: Reports No symptoms Mouth: Reports No symptoms Respiratory: Reports Cough, Shortness of air and Pain with breathing Cardiovascular: Reports No symptoms Gastrointestinal: Reports No symptoms Genitourinary: Reports No symptoms Neurological: Reports No symptoms Musculoskeletal: Reports No symptoms Skin: Reports No symptoms Immunology: Reports No symptoms Hematology: Reports No symptoms Endocrine: Reports No symptoms Psychiatric: Reports No symptoms Habits: Denies Tobacco use, Substance use, Alcohol use or Other Allergies Allergies Allergy/AdvReac Type Severity Reaction Status Date / Time codeine AdvReac Vomiting Verified 07/07/22 13:02 [facility] Medical History Arthritis Asthma Chronic obstructive pulmonary disease Gastroesophageal reflux disease Gastrointestinal problem Hyperlipidemia Hypertension Seasonal allergies Surgical History Cataract extraction and insertion of intraocular lens History of dental surgery History of joint surgery History of tubal ligation Status post appendectomy Status post cholecystectomy Status post hysterectomy Family History Mother Diabetes Hypertension Other Sinus problem Social History Smoking and tobacco status: Current every day smoker Alcohol intake: never Substance use type: does not use Seatbelt use: always Drives intoxicated or rides with 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 Water heater temperature set < 120 degrees: Yes Working smoke detector in home: Yes Fire extinguisher in home: Yes Carbon monoxide detector in home: Yes Medications Medications: Medications Generic Name Dose Route Start Last Admin Trade Name Freq PRN Reason Stop Dose Admin Hydrocodone Bitart/Acetaminophen 1 tab 07/07/22 15:00 Hydrocodone Bit/Acetaminophen 10/325 Mg Tablet PO TID BESS Apixaban 5 mg 07/07/22 21:00 Apixaban 5 Mg Tab PO BID [facility] Carvedilol 25 mg 07/07/22 21:00 Carvedilol 12.5 Mg Tablet PO BID BESS Citalopram Hydrobromide 20 mg 07/08/22 09:00 Citalopram Hydrobromide 20 Mg Tablet PO DAILY BESS Furosemide 20 mg 07/08/22 09:00 Furosemide 20 Mg Tablet PO DAILY BESS Diltiazem HCl 125 mg/ Sodium 125 mls @ 5 mls/hr 07/07/22 12:00 07/07/22 12:18 Chloride IV 5 mg/hr TITRATION BESS 5 mls/hr Administration Protocol 5 MG/HR CEFTRIAXONE/D5W 1 GM PREMIX 1 gm in 50 mls @ 75 mls/hr 07/07/22 12:00 07/07/22 12:53 Rocephin 1 Gm/50 Ml D5w IV 07/10/22 11:59 75 mls/hr DAILY BESS Administration Loratadine 10 mg 07/08/22 09:00 Loratadine 10 Mg Tablet PO DAILY BESS Lorazepam 1 mg 07/07/22 11:58 Lorazepam 1 Mg Tablet PO PRN PRN Anxiety Losartan Potassium 50 mg 07/08/22 09:00 Losartan Potassium 25 Mg Tablet PO DAILY BESS Non-Formulary Medication 2 puff 07/08/22 09:00 Tiotropium [place] [Spiriva Respimat] IH DAILY BESS Non-Formulary Medication 2 mg 07/07/22 21:00 Tizanidine PO BID BESS Potassium Chloride 20 meq 07/08/22 09:00 Potassium Chloride 20 Meq Tab PO DAILY BESS Simvastatin 20 mg 07/08/22 09:00 Simvastatin 10 Mg Tablet PO DAILY [facility] Sodium Chloride 1 syr 07/07/22 09:37 07/07/22 10:16 0.9% Sodium Chloride 10 Ml Disp.Syrin IVF 1 syr PRN PRN Administration To flush IV Body Composition Height: 5 ft 4 in Weight: 280 lb Body Mass Index (BMI): 48.0 Vital Signs Temperature: 97.7 F Pulse Rate: 111 Respiratory Rate: 22 Blood Pressure: 114/78 O2 Sat by Pulse Oximetry: 94 Physical Examination Appearance: Reports Well-appearing and Obese Ill-appearing: None Pain Distress: Moderate Eyes: Reports KONSTANTIN, EOMI and Conjunctiva clear ENT: Reports Ears normal, Nose normal and Oropharynx normal Neck: Supple Respiratory: Reports Airway patent, Breath sounds equal and Rhonchi Cardiovascular: Reports RRR, No rub, No murmur and Irregular rhythm GI/: Reports Soft, Nontender, No masses and Bowel sounds normal Musculoskeletal: Reports Normal strength, ROM intact and No edema Skin: Reports Warm, Dry and Normal color Neurological: Reports Motor intact, Reflexes intact, Cranial nerves intact, Alert and Oriented Psychiatric: Reports Affect appropriate, Mood appropriate and Anxious Lab/Tests/Diagnostic Imaging Lab/Tests/Diagnostic Imaging: Lab Review 07/07/22 07/07/22 07/07/22 09:45 09:50 10:01 WBC RBC Hgb Hct MCV MCH MCHC RDW Coeff of Yara Plt Count Immature Gran % (Auto) Neut % (Auto) Lymph % (Auto) [place] % (Auto) Eos % (Auto) Baso % (Auto) Neut # (Auto) Lymph # (Auto) [place] # (Auto) Eos # (Auto) Baso # (Auto) Immature Gran # (Auto) Puncture Site Rr Base Excess 0.9 O2 Saturation 99.3 H ABG pH 7.51 H* ABG pCO2 30.0 L ABG pO2 134.0 H ABG HCO3 23.9 ABG Total CO2 24.8 H Imtiaz Test Pos Hemoglobin 1.2 Oxyhemoglobin 93.3 L Carboxyhemoglobin 4.7 H Total Hemoglobin 14.9 FiO2 % 21.0 Sodium 133.7 L Potassium 4.37 Chloride 103.0 Carbon Dioxide 24.8 Anion Gap 10.27 BUN 16.6 Creatinine 0.81 Estimated GFR (MDRD) 69.00 BUN/Creatinine Ratio 20.49 Glucose 117.3 H Lactic Acid Calcium 9.23 Total Bilirubin 0.95 AST 20.9 ALT 17.3 Alkaline Phosphatase 100.0 Troponin I < 0.012 NT-Pro-B Natriuret Pep Total Protein 7.46 Albumin 4.08 Globulin 3.38 Albumin/Globulin Ratio 1.20 D-Dimer SARS CoV-2 RNA Rapid MAIRA Negative 07/07/22 07/07/22 07/07/22 10:01 10:01 10:01 WBC 10.85 H RBC 4.79 Hgb 14.6 Hct 47.4 H MCV 99.0 MCH 30.5 MCHC 30.8 L RDW Coeff of Yara 15.2 H Plt Count 178 Immature Gran % (Auto) 0.4 Neut % (Auto) 73.9 Lymph % (Auto) 17.1 [place] % (Auto) 7.9 Eos % (Auto) 0.3 Baso % (Auto) 0.4 Neut # (Auto) 8.0 H Lymph # (Auto) 1.9 [place] # (Auto) 0.9 Eos # (Auto) 0.0 Baso # (Auto) 0.0 Immature Gran # (Auto) 0.0 Puncture Site Base Excess O2 Saturation ABG pH ABG pCO2 ABG pO2 ABG HCO3 ABG Total CO2 Imtiaz Test Hemoglobin Oxyhemoglobin Carboxyhemoglobin Total Hemoglobin FiO2 % Sodium Potassium Chloride Carbon Dioxide Anion Gap BUN Creatinine Estimated GFR (MDRD) BUN/Creatinine Ratio Glucose Lactic Acid 0.85 Calcium Total Bilirubin AST ALT Alkaline Phosphatase Troponin I NT-Pro-B Natriuret Pep Total Protein Albumin Globulin Albumin/Globulin Ratio D-Dimer 1027.69 H SARS CoV-2 RNA Rapid MAIRA 07/07/22 10:05 WBC RBC Hgb Hct MCV MCH MCHC RDW Coeff of Yara Plt Count Immature Gran % (Auto) Neut % (Auto) Lymph % (Auto) [place] % (Auto) Eos % (Auto) Baso % (Auto) Neut # (Auto) Lymph # (Auto) [place] # (Auto) Eos # (Auto) Baso # (Auto) Immature Gran # (Auto) Puncture Site Base Excess O2 Saturation ABG pH ABG pCO2 ABG pO2 ABG HCO3 ABG Total CO2 Imtiaz Test Hemoglobin Oxyhemoglobin Carboxyhemoglobin Total Hemoglobin FiO2 % Sodium Potassium Chloride Carbon Dioxide Anion Gap BUN Creatinine Estimated GFR (MDRD) BUN/Creatinine Ratio Glucose Lactic Acid Calcium Total Bilirubin AST ALT Alkaline Phosphatase Troponin I NT-Pro-B Natriuret Pep 2130.000 H Total Protein Albumin Globulin Albumin/Globulin Ratio D-Dimer SARS CoV-2 RNA Rapid MAIRA Orders Category Date Time Status ADMIT PATIENT INPATIENT .TO [facility] (MONITORED BED) ADMISSION 07/07/22 11:53 Active ABG DRAW REQUEST Stat CARDIO 07/07/22 09:38 Completed EKG-(ED ONLY) Stat CARDIO 07/07/22 09:37 Completed EKG-(IP & OP ONLY) DAILY CARDIO 07/08/22 06:00 Ordered EKG-(IP & OP ONLY) DAILY CARDIO 07/09/22 06:00 Ordered OXYGEN Routine CARDIO 07/07/22 11:55 Ordered ACTIVITY .Up With Assistance CARE 07/07/22 11:54 Active INTAKE & OUTPUT Q8HR CARE 07/07/22 11:54 Active IP: INSERT SALINE LOCK ONCE CARE 07/07/22 11:54 Active NOTIFY PHYSICIAN OF CONSULT ONCE CARE 07/07/22 12:03 Active NPO REMINDER: IMAGING ONCE CARE 07/07/22 10:44 Completed TELEMETRY MONITORING TELE CARE 07/07/22 11:53 Active VITAL SIGNS Q8HR CARE 07/07/22 11:54 Active CONSULT DOCTOR [PHYSICIAN CONSULTATION] [CONS] Routine CONSULTS 07/07/22 12:03 Ordered REGULAR DIET DIETARY 07/07/22 Lunch Ordered ED JUVENILE OFFICER APPLIED .ONCE EMERGENCY 07/07/22 09:37 Active ED IV/MEDIPORT/POWERPORT .ONCE EMERGENCY 07/07/22 09:38 Active ABG COOX Stat LAB 07/07/22 09:50 Completed BLOOD CULTURE (ED ONLY) Stat LAB 07/07/22 10:01 Received CBC W/ AUTO DIFF DAILY@0600 LAB 07/08/22 06:00 Ordered CBC W/ AUTO DIFF DAILY@0600 LAB 07/09/22 06:00 Ordered CBC W/ AUTO DIFF Stat LAB 07/07/22 10:01 Completed COMPREHENSIVE METABOLIC PANEL DAILY@0600 LAB 07/08/22 06:00 Ordered COMPREHENSIVE METABOLIC PANEL DAILY@0600 LAB 07/09/22 06:00 Ordered COMPREHENSIVE METABOLIC PANEL Stat LAB 07/07/22 10:01 Completed D-DIMER Stat LAB 07/07/22 10:01 Completed LACTIC ACID Stat LAB 07/07/22 10:01 Completed PRO-BNP [NT-PROBNP] Stat LAB 07/07/22 10:05 Completed SARS COV-2 RNA RAPID MAIRA Stat LAB 07/07/22 09:45 Completed TROPONIN I Q8H LAB 07/07/22 18:00 Ordered TROPONIN I Q8H LAB 07/08/22 02:00 Ordered TROPONIN I Stat LAB 07/07/22 10:01 Completed 0.9 % Sodium Chloride [Saline Flush] MEDS 07/07/22 09:37 Active 1 syr IVF PRN PRN Apixaban [Eliquis] MEDS 07/07/22 21:00 Active 5 mg PO BID Carvedilol [Coreg] MEDS 07/07/22 21:00 Active 25 mg PO BID Ceftriaxone/D5w 1 gm Premix [Rocephin 1 gm/50 ml D5w] MEDS 07/07/22 12:00 Active 1 gm in 50 ml IV DAILY Citalopram Hydrobromide [Celexa] MEDS 07/08/22 09:00 Active 20 mg PO DAILY Diltiazem HCl [Cardizem Inj] MEDS 07/07/22 11:51 Discontinued 15 mg IVP ONCE STA Diltiazem HCl [Cardizem] 125 mg MEDS 07/07/22 12:00 Active 0.9 % Sodium Chloride [Sodium Chloride 100Ml] 100 ml IV TITRATION Furosemide [Lasix Tab] MEDS 07/08/22 09:00 Active 20 mg PO DAILY Furosemide [Lasix] MEDS 07/07/22 09:45 Discontinued 40 mg IVP ONCE STA Hydrocodone Bit/Acetaminophen [[place] 10-325] MEDS 07/07/22 15:00 Active 1 tab PO TID Loratadine [Claritin] MEDS 07/08/22 09:00 Active 10 mg PO DAILY Lorazepam [Ativan] MEDS 07/07/22 11:58 Active 1 mg PO PRN PRN Losartan Potassium [Cozaar] MEDS 07/08/22 09:00 Active 50 mg PO DAILY Morphine Sulfate [Morphine 2 mg/ml Syringe] MEDS 07/07/22 10:20 Discontinued 2 mg IVP ONCE STA Potassium Chloride [K-Dur] MEDS 07/08/22 09:00 Active 20 meq PO DAILY Simvastatin [Zocor] MEDS 07/08/22 09:00 Active 20 mg PO DAILY tiotropium bromide [Spiriva Respimat] MEDS 07/08/22 09:00 Pending 2 puff IH DAILY tizanidine MEDS 07/07/22 21:00 Pending 2 mg PO BID RESUSCITATION STATUS Routine OTHERS 07/07/22 11:[address] CHEST PE PROTOCOL Stat RADS 07/07/22 10:44 Completed CXR [CHEST, 1V AP ONLY] Stat RADS 07/07/22 09:37 Taken Medications Generic Name Dose Route Start Last Admin Trade Name Freq PRN Reason Stop Dose Admin Hydrocodone Bitart/Acetaminophen 1 tab 07/07/22 15:00 Hydrocodone Bit/Acetaminophen 10/325 Mg Tablet PO TID BESS Apixaban 5 mg 07/07/22 21:00 Apixaban 5 Mg Tab PO BID [facility] Carvedilol 25 mg 07/07/22 21:00 Carvedilol 12.5 Mg Tablet PO BID [facility] Citalopram Hydrobromide 20 mg 07/08/22 09:00 Citalopram Hydrobromide 20 Mg Tablet PO DAILY BESS Furosemide 20 mg 07/08/22 09:00 Furosemide 20 Mg Tablet PO DAILY BESS Diltiazem HCl 125 mg/ Sodium 125 mls @ 5 mls/hr 07/07/22 12:00 07/07/22 12:18 Chloride IV 5 mg/hr TITRATION BESS 5 mls/hr Administration Protocol 5 MG/HR CEFTRIAXONE/D5W 1 GM PREMIX 1 gm in 50 mls @ 75 mls/hr 07/07/22 12:00 07/07/22 12:53 Rocephin 1 Gm/50 Ml D5w IV 07/10/22 11:59 75 mls/hr DAILY BESS Administration Loratadine 10 mg 07/08/22 09:00 Loratadine 10 Mg Tablet PO DAILY BESS Lorazepam 1 mg 07/07/22 11:58 Lorazepam 1 Mg Tablet PO PRN PRN Anxiety Losartan Potassium 50 mg 07/08/22 09:00 Losartan Potassium 25 Mg Tablet PO DAILY BESS Non-Formulary Medication 2 puff 07/08/22 09:00 Tiotropium [place] [Spiriva Respimat] IH DAILY BESS Non-Formulary Medication 2 mg 07/07/22 21:00 Tizanidine PO BID BESS Potassium Chloride 20 meq 07/08/22 09:00 Potassium Chloride 20 Meq Tab PO DAILY BESS Simvastatin 20 mg 07/08/22 09:00 Simvastatin 10 Mg Tablet PO DAILY BESS Sodium Chloride 1 syr 07/07/22 09:37 07/07/22 10:16 0.9% Sodium Chloride 10 Ml Disp.Syrin IVF 1 syr PRN PRN Administration To flush IV Discontinued Medications Generic Name Dose Route Start Last Admin Trade Name Freq PRN Reason Stop Dose Admin Diltiazem HCl 15 mg 07/07/22 11:51 07/07/22 12:17 Diltiazem Hcl Inj 25 Mg/5 Ml Vial IVP 07/07/22 11:52 15 mg ONCE STA Administration Furosemide 40 mg 07/07/22 09:45 07/07/22 10:16 Furosemide Inj 40 Mg/4 Ml Vial IVP 07/07/22 09:46 40 mg ONCE STA Administration Morphine Sulfate 2 mg 07/07/22 10:20 07/07/22 10:33 Morphine Sulfate 2 Mg/Ml Syringe IVP 07/07/22 10:21 2 mg ONCE STA Administration Assessment (1) Acute exacerbation of chronic obstructive pulmonary disease: Status: Acute Code(s): J44.1 - Chronic obstructive pulmonary disease with (acute) exacerbation SNOMED Code(s): 211795222 (2) Atrial fibrillation with rapid ventricular response: Status: Acute Code(s): I48.91 - Unspecified atrial fibrillation SNOMED Code(s): 288992187728516 Assessment: her chest ct is neg for embolism or infiltrate Plan Plan: will treat with steroids, pulmonary tx, cardizem drip for afib with rvr, continue eliquis, dr tucker has been consulted.
[2022-07-07 13:51] VITALS: BMI 49.8
[2022-07-07] MEDS: NORCO 10-325 PO SCH ×2 (14:33→20:50)
[2022-07-07] MEDS: NICODERM 14 MG TD SCH (15:17)
[2022-07-07] MEDS: CARDIZEM PO SCH (18:14)
[2022-07-07] MEDS: COREG PO SCH (20:48)
[2022-07-07] MEDS: PEPCID PO SCH (20:49)
[2022-07-07] MEDS: ZANAFLEX PO SCH (20:49)
[2022-07-07] MEDS: ELIQUIS PO SCH (20:50)
[2022-07-07] MEDS ORDERED: NON-FORMULARY MEDICATION (Azelastine 0.05 % drops) NAS SCH (21:00)
[2022-07-07] MEDS: FLONASE NAS SCH (21:33)
[2022-07-07] MEDS: SYMBICORT 160-4.5 MCG INHALER IH SCH (21:39)
[2022-07-08] MEDS: CARDIZEM PO SCH ×3 (00:37→20:31)
[2022-07-08 02:12] LABS: BASOPHILS % (AUTO) 0.3 % (0.0-3.0); EOSINOPHILS % (AUTO) 0.2 % (0.0-7.0); HEMATOCRIT 41.8 % (37.0-47.0); HEMOGLOBIN 13.6 g/dl (12.0-16.0); IMMATURE GRANULOCYTE # (AUTO) 0.1 (0.0-1.0); IMMATURE GRANULOCYTE % (AUTO) 0.5 % (0.0-5.0); LYMPHOCYTES # (AUTO) 1.8 K/uL (0.60-3.4); LYMPHOCYTES % (AUTO) 18.3 (10.0-50.0); MEAN CORPUSCULAR HEMOGLOBIN 30.8 pg (27.0-31.0); MEAN CORPUSCULAR HGB CONC 32.5 (31.8-35.4); MEAN CORPUSCULAR VOLUME 94.6 fl (81.0-99.0); MONOCYTES # (AUTO) 1.1 K/uL (0.4-2.0); MONOCYTES % (AUTO) 10.9 (0-10); NEUTROPHILS % (AUTO) 69.8 % (42.2-75.2); PLATELET COUNT 169 10^3/uL (140-440); RED BLOOD COUNT 4.42 10^6/ul (4.20-5.40); WHITE BLOOD COUNT 10.01 K/ul (4.6-10.2)
[2022-07-08 02:24] LABS: ALANINE AMINOTRANSFERASE 21.1 U/L (0-35); ALBUMIN 3.57 g/dL (3.5-5.0); ALKALINE PHOSPHATASE 89.5 U/L (53-141); ASPARTATE AMINO TRANSFERASE 27.3 U/L (14-36); BILIRUBIN,TOTAL 1.07 mg/dL (0.2-1.3); BLOOD UREA NITROGEN 17.3 mg/dL (7-17); CALCIUM 8.94 mg/dL (8.4-10.2); CARBON DIOXIDE 28.4 mmol/L (22-30.0); CHLORIDE 100.1 mmol/L (98-107); CREATININE 0.78 mg/dL (0.60-1.30); GLUCOSE 116.5 mg/dL (74-106); POTASSIUM 3.76 mmol/L (3.5-5.1); SODIUM 133.4 mmol/L (134.5-145); TOTAL PROTEIN 6.83 g/dL (6.3-8.2)
[2022-07-08 02:36] LABS: TROPONIN I < 0.012 ng/ml (0.0000-0.120)
[2022-07-08] MEDS: FLONASE NAS SCH ×2 (08:11→20:31)
[2022-07-08] MEDS: COREG PO SCH ×2 (08:12→20:32)
[2022-07-08] MEDS: DITROPAN XL PO SCH (08:12)
[2022-07-08] MEDS: ZOCOR PO SCH (08:12)
[2022-07-08] MEDS: CLARITIN PO SCH (08:12)
[2022-07-08] MEDS: NORCO 10-325 PO SCH ×3 (08:12→20:33)
[2022-07-08] MEDS: ZANAFLEX PO SCH ×2 (08:12→20:32)
[2022-07-08] MEDS: PEPCID PO SCH ×2 (08:12→20:32)
[2022-07-08] MEDS: ELIQUIS PO SCH ×2 (08:13→20:32)
[2022-07-08] MEDS: K-DUR PO SCH (08:13)
[2022-07-08] MEDS: PROTONIX PO SCH (08:13)
[2022-07-08] MEDS: LASIX TAB PO SCH (08:13)
[2022-07-08] MEDS: CELEXA PO SCH (08:13)
[2022-07-08] MEDS: NICODERM 14 MG TD SCH (08:14)
[2022-07-08] MEDS: SYMBICORT 160-4.5 MCG INHALER IH SCH ×2 (08:15→20:31)
--- NOTE | 2022-07-08 08:44 | DI ---
Exam: frontal chest radiograph(s) History: Shortness of breath Comparison: none Technique: 1 image(s) of the chest Findings / Impression: Mild cardiomegaly. No pneumothorax, pleural effusion, or focal airspace opaci fication. Degenerative changes both shoulders
[2022-07-08] MEDS ORDERED: NON-FORMULARY MEDICATION (Tiotropium Bromide [Spiriva Respimat] 2.5 mcg/actuation Mist) IH SCH (09:00)
[2022-07-08] MEDS ORDERED: COZAAR PO SCH (09:00)
[2022-07-08] MEDS: ROCEPHIN 1 GM/50 ML D5W 1 GM/50 ML BAG IV SCH (09:11)
--- NOTE | 2022-07-08 14:46 | CONS ---
DATE OF CONSULTATION: 07/07/22 REASON FOR CONSULTATION: Atrial fibrillation with rapid ventricular response. HISTORY OF PRESENT ILLNESS: 77 year old white female came to the emergency room with complaint of having shortness of breath, cough, congestion and bronchitis type of symptoms. The patient's rate was approximately 120 per minute with atrial fibrillation. She was in mild distress. Examined her in the emergency room, the patient was feeling better, coughing. COVID 19 negative. REVIEW OF SYSTEMS: CONSTITUTIONAL: No night sweats. No fatigue, malaise, lethargy. No fever or chills. HEENT: Eyes: No visual changes. No eye pain. No eye discharge. ENT: No sinus drainage. No epistaxis. No sinus pain. No sore throat. No odynophagia. No ear pain. No congestion. RESPIRATORY: No cough, no congestion. No hemoptysis. No shortness of breath. CARDIOVASCULAR: No angina symptoms. No CHF symptoms. No atypical chest pain for CAD. No palpitations. No orthopnea. GASTROINTESTINAL: No abdominal pain. No nausea or vomiting. No diarrhea or constipation. No hematemesis. No hematochezia. GENITOURINARY: No urgency. No frequency. No dysuria. No hematuria. No obstructive symptoms. No discharge. No pain. No significant abnormal bleeding. MUSCULOSKELETAL: No musculoskeletal pain. No joint swelling. NEUROLOGICAL: No headache. No neck pain. No syncope. No seizures. No dizziness. PSYCHIATRIC: Not anxious. No depression. No suicidal thoughts. No homicidal thoughts. SKIN: No rash. No lesions. No wounds. ENDOCRINE: No unexplained weight loss. No weight gain. HEMATOLOGIC/LYMPHATIC: No anemia. No purpura. No petechiae. No prolonged or excessive bleeding. No palpable lymph nodes. PHYSICAL EXAMINATION: GENERAL: The patient is oriented to time, place and person. HEENT: Head normocephalic, atraumatic. Eyes: Extraocular muscles are intact. Pupils are equal, round and reactive to light and accommodation. Ears: No lesions. Nose appeared normal. Throat: No exudate or erythema. NECK: Supple. No JVD, no carotid bruit. No lymphadenopathy or thyromegaly. LUNGS: Decreased breath sounds, mild wheeze. Percussion note normal. Chest symmetrical. HEART: S1, S2 irregular, no S3. No murmurs. No cyanosis or clubbing. No ascites. Pulses: Dorsalis pedis and posterior tibial pulses +1 bilaterally. ABDOMEN: Soft. Nontender. Bowel sounds active. No CVA tenderness. No mass felt. EXTREMITIES: Trace edema. Full range of motion of all extremities, equal. NEUROLOGIC: No focal deficit. Cranial nerves II through XII are grossly intact. No headache, no double vision or headache. SKIN: Not dry. Intact. Turgor - normal. LYMPHATIC: No palpable lymph nodes/no lymphedema. MUSCULOSKELETAL: Normal joints with no swelling. Muscle tone is normal. LABS: EKG atrial fibrillation, low voltage. No acute changes. Discussed with ER attending Dr. Mars El is going to be the attending as the hospitalist. ASSESSMENT: 1. Atrial fibrillation with rapid ventricular response, HETAL VASC SCORE IS____ 2. 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 Acute bronchitis with chronic lung disease 4. Hypertensive heart disease with moderate left ventricle hypertrophy with stiff left ventricle 5. Morbid obesity with BMI of more than 50 6. Dyslipidemia 7. Obstructive sleep apnea. 8. Noncompliance of all aspects of medical care. RECOMMENDATIONS: 1. Continue her Coreg 2. Continue Cardizem drip for now 3. Continue rest of the medications for now 4. Continue Telemetry 5. Agreed with antibiotics, steroids, NEBS. CONDITION: Stable Thank you very much for referral, will follow. YANDEL
--- NOTE | 2022-07-08 15:08 | PCM.PROG ---
Date Seen by Provider: 07/08/22 Time Seen by Provider: 11:00 Subjective: CC - soa, wheeze. Feels some better with tx, less wheezing, less palpitaitons, no CP Objective: Vitals: T=97.9 F, P=97, R=24, DK=449/71, SPO2=89 HEENT: [WNL] Neck: [supple] Lungs: [Reduced BS] CVS: [IRR] Abdomen: [soft] Extremities: [int] Neurological: [int] Skin: [WNL] Lab/Tests/Diagnostic Imaging: [See flow sheet.] (1) Acute exacerbation of chronic obstructive pulmonary disease: Status: Acute Code(s): J44.1 - Chronic obstructive pulmonary disease with (acute) exacerbation SNOMED Code(s): 633081034 Assessment: Improving. Moving air well. Sleep apnea as well, has her CPAP. (2) Atrial fibrillation with rapid ventricular response: Status: Acute Code(s): I48.91 - Unspecified atrial fibrillation SNOMED Code(s): 485140512912233 Assessment: Seen by Dr. Shaw, on oral cardizem, rate controlled, still a-fib. Plan: Continue same management.
[2022-07-08] MEDS ORDERED: DUONEB NEB PRN (18:34)
[2022-07-08] MEDS ORDERED: CARDIZEM PO SCH (21:00)
[2022-07-09 05:14] LABS: BASOPHILS % (AUTO) 0.3 % (0.0-3.0); EOSINOPHILS # (AUTO) 0.1 K/ul (0.0-0.7); EOSINOPHILS % (AUTO) 1.2 % (0.0-7.0); HEMATOCRIT 41.8 % (37.0-47.0); HEMOGLOBIN 13.1 g/dl (12.0-16.0); IMMATURE GRANULOCYTE # (AUTO) 0.1 (0.0-1.0); IMMATURE GRANULOCYTE % (AUTO) 0.6 % (0.0-5.0); LYMPHOCYTES # (AUTO) 2.4 K/uL (0.60-3.4); MEAN CORPUSCULAR HEMOGLOBIN 29.9 pg (27.0-31.0); MEAN CORPUSCULAR HGB CONC 31.3 (31.8-35.4); MEAN CORPUSCULAR VOLUME 95.4 fl (81.0-99.0); MONOCYTES # (AUTO) 0.9 K/uL (0.4-2.0); NEUTROPHILS # (AUTO) 6.1 K/ul (2.0-6.9); NEUTROPHILS % (AUTO) 63.9 % (42.2-75.2); PLATELET COUNT 170 10^3/uL (140-440); RDW COEFFICIENT OF VARIATION 15.2 % (11.6-14.8); RED BLOOD COUNT 4.38 10^6/ul (4.20-5.40); WHITE BLOOD COUNT 9.53 K/ul (4.6-10.2)
[2022-07-09 05:26] LABS: ALANINE AMINOTRANSFERASE 18.7 U/L (0-35); ALBUMIN 3.64 g/dL (3.5-5.0); ALKALINE PHOSPHATASE 88.6 U/L (53-141); ASPARTATE AMINO TRANSFERASE 23.4 U/L (14-36); BILIRUBIN,TOTAL 0.79 mg/dL (0.2-1.3); BLOOD UREA NITROGEN 30.8 mg/dL (7-17); CARBON DIOXIDE 31.2 mmol/L (22-30.0); CHLORIDE 98.1 mmol/L (98-107); CREATININE 1.22 mg/dL (0.60-1.30); GLUCOSE 110.3 mg/dL (74-106); POTASSIUM 3.97 mmol/L (3.5-5.1); SODIUM 133.5 mmol/L (134.5-145); TOTAL PROTEIN 7.07 g/dL (6.3-8.2)
[2022-07-09] MEDS: PROTONIX PO SCH (05:37)
[2022-07-09 07:08] VITALS: TEMP 97.8
[2022-07-09] MEDS: LASIX TAB PO SCH (08:14)
[2022-07-09] MEDS: ZANAFLEX PO SCH (08:48)
[2022-07-09] MEDS: PEPCID PO SCH (08:48)
[2022-07-09] MEDS: ROCEPHIN 1 GM/50 ML D5W 1 GM/50 ML BAG IV SCH (08:48)
[2022-07-09] MEDS: CELEXA PO SCH (08:49)
[2022-07-09] MEDS: CARDIZEM PO SCH (08:49)
[2022-07-09] MEDS: ELIQUIS PO SCH (08:49)
[2022-07-09] MEDS: K-DUR PO SCH (08:49)
[2022-07-09] MEDS: COREG PO SCH (08:49)
[2022-07-09] MEDS: CLARITIN PO SCH (08:49)
[2022-07-09] MEDS: DITROPAN XL PO SCH (08:50)
[2022-07-09] MEDS: ZOCOR PO SCH (08:50)
[2022-07-09] MEDS: NICODERM 14 MG TD SCH (08:50)
[2022-07-09] MEDS: NORCO 10-325 PO SCH (08:50)
[2022-07-09] MEDS ORDERED: COZAAR PO SCH (09:00)
--- NOTE | 2022-07-09 09:05 | PCM.PROG ---
Attending Provider: ATTENDING PROVIDER: Dr. AIDAN MULLEN This patient is seen with Soumya Demarco, Nurse Practitioner. DATE OF SERVICE: 07/09/22 SUBJECTIVE: This 77 year old /WHITE F was hospitalized 07/07/22. Heart rate has been between 80s and 90s, last O2 saturation was 92%. She had echo in October. Last PFT was in 2017. Yesterday we changed Cardizem 60mg BID and decreased Losartan. REVIEW OF SYSTEMS: CONSTITUTIONAL: No night sweats. Fatigue. No fever or chills. Weakness. HEENT: Eyes: No visual changes. No eye pain. No eye discharge. ENT: No runny nose. No epistaxis. No sinus pain. No odynophagia. No congestion. RESPIRATORY: No cough, no congestion. No hemoptysis. No shortness of breath. CARDIOVASCULAR: No angina symptoms. No CHF symptoms. No atypical chest pain for CAD. No palpitations. No orthopnea.. GASTROINTESTINAL: No abdominal pain. No nausea or vomiting. No diarrhea or constipation. No hematemesis. No hematochezia. GENITOURINARY: No urgency. No frequency. No dysuria. No hematuria. No obstructive symptoms. No discharge. No pain. No significant abnormal bleeding. MUSCULOSKELETAL: No musculoskeletal pain; no joint swelling. NEUROLOGICAL: Awake, alert, oriented to time, place and person. No headache. No neck pain. No syncope. No seizures. No dizziness. PSYCHIATRIC: Not anxious. No depression. No suicidal thoughts. No homicidal thou ghts. SKIN: No rash. No lesions. No wounds. ENDOCRINE: No unexplained weight loss. No weight gain. HEMATOLOGIC/LYMPHATIC: No anemia. No purpura. No petechiae. No prolonged or excessive bleeding. No palpable lymph nodes. PHYSICAL EXAMINATION: GENERAL: The patient is awake, alert and oriented, sitting in bed in no distress. VITAL SIGNS: Temperature 97.8 F, Pulse 72, Respiratory Rate 20, BP 108/74, Pulse Ox 96% HEENT: Head normocephalic, atraumatic. Eyes: Extraocular muscles are intact. Pupils are equal, round and reactive to light and accommodation. Ears: No l esions. Nose appeared normal. Throat: No exudate or erythema. NECK: Supple. No JVD, no carotid bruit. No lymphadenopathy or thyromegaly. LUNGS: Diminished breath sounds. Clear to auscultation. Percussion note normal. Chest symmetrical. HEART: S1, S2, no S3. Irregular heart rate. No murmurs. No cyanosis or clubbing. No ascites. Pulses: Dorsalis pedis and posterior tibial pulses +1 to +2 both sides. ABDOMEN: Soft. Non-tender. Bowel sounds active. No CVA tenderness. No mass felt. EXTREMITIES: Trace pedal edema. Full range of motion of all extremities, equal. NEUROLOGIC: No focal deficit. Cranial nerves II through XII are grossly intact. No headache. No double vision. SKIN: Not dry. Intact. Turgor-normal. LYMPHATIC: No palpable lymph nodes/no lymphedema. MUSCULOSKELETAL: Normal joints with no swelling. Muscle tone is normal. LAB REVIEW: 07/09/22 05:00 07/09/22 05:00 07/09/22 05:00: Sodium 133.5 L, Potassium 3.97, Chloride 98.1, Carbon Dioxide 31.2 H, Anion Gap 8.17, BUN 30.8 H, Creatinine 1.22, Estimated GFR (MDRD) 43.00, BUN/Creatinine Ratio 25.24, Glucose 110.3 H, Calcium 9.00, Total Bilirubin 0.79, AST 23.4, ALT 18.7, Alkaline Phosphatase 88.6, Total Protein 7.07, Albumin 3.64, Globulin 3.43, Albumin/Globulin Ratio 1.06 07/09/22 05:00: WBC 9.53, RBC 4.38, Hgb 13.1, Hct 41.8, MCV 95.4, MCH 29.9, MCHC 31.3 L, RDW Coeff of Yara 15.2 H, Plt Count 170, Immature Gran % (Auto) 0.6, Neut % (Auto) 63.9, Lymph % (Auto) 25.0, [place] % (Auto) 9.0, Eos % (Auto) 1.2, Baso % (Auto) 0.3, Neut # (Auto) 6.1, Lymph # (Auto) 2.4, [place] # (Auto) 0.9, Eos # (Auto) 0.1, Baso # (Auto) 0.0, Immature Gran # (Auto) 0.1 07/08/22 02:00: TSH 1.040 07/08/22 02:00: Free T4 1.27 ASSESSMENT: Please see below. 1. Atrial fibrillation, rate controlled 2. COPD 3. Cor Pulmonale 4. Obesity 5. History of noncompliance with diet, lifestyle and medications. PLAN: 1. PFT 2. Hold Lasix for today 3. Three step before discharge Plan and coordination of the patient's care discussed in the presence of Ramp Service Man and nurse. SCRIBED BY: Dontrell BACH scribed while in presence of service performed by Dr. Shaw/Soumya Demarco APRN on 07/09/22 ([id number])
[2022-07-09] MEDS ORDERED: AZELASTINE 0.05% EACHEYE SCH (09:15)
[2022-07-09] MEDS ORDERED: SYMBICORT 160-4.5 MCG INHALER IH SCH (09:15)
[2022-07-09] MEDS ORDERED: FLONASE NAS SCH (09:15)
[2022-07-09] MEDS: FLONASE NAS SCH (09:25)
[2022-07-09] MEDS: CARDIZEM 125 MG in SODIUM CHLORIDE 100ML 100 ML IV SCH (09:25)
[2022-07-09] MEDS: SYMBICORT 160-4.5 MCG INHALER IH SCH (09:25)
[2022-07-09 10:59] VITALS: BP 109/74
--- NOTE | 2022-07-09 12:29 | PCM.DC ---
Final Diagnosis: COPD exacerbation - resolved. Atrial fibrillation with rapid ventricular rate - resolved. Date of admit - 07/07/2022 Date of discharge - 07/09/2022 Physical Exam Appearance: Well-appearing, No pain distress and Obese Ill-appearing: None Pain Distress: None Eyes: [place]ONSTANT[place] ENT: Oropharynx normal Neck: Supple Respiratory: Airway patent and Breath sounds clear Cardiovascular: Pulses normal and Irregular rhythm GI/: Soft and Nontender Musculoskeletal: Normal strength and ROM intact Skin: Warm and Dry Neurological: Sensation intact, Motor intact and Alert Psychiatric: Affect appropriate and Mood appropriate (1) Acute exacerbation of chronic obstructive pulmonary disease: Status: Acute Code(s): J44.1 - Chronic obstructive pulmonary disease with (acute) exacerbation SNOMED Code(s): 946180138 (2) Atrial fibrillation with rapid ventricular response: Status: Acute Code(s): I48.91 - Unspecified atrial fibrillation SNOMED Code(s): 691081403829106 Reason for Hospitalization: SOA, wheezing, and rapid heart rate, no chest pain. Prognosis/Condition at Discharge: Good, stable Medications at Discharge: Medications at Discharge (Home Meds & RX) hydrocodone 10 mg-acetaminophen 325 mg tablet 1 ea PO TID 03/03/18 citalopram 20 mg tablet (Celexa) 20 mg PO DAILY 90 days #90 tab-caps 10/27/18 budesonide-formoterol HFA 160 mcg-4.5 mcg/actuation aerosol inhaler (Symbicort) 2 puff inhalation BID 05/04/21 famotidine 40 mg tablet (Pepcid) 40 mg PO BID 05/04/21 carvedilol 25 mg tablet (Coreg) 25 mg PO BID #30 tabs 11/19/21 potassium chloride 20 mEq tablet,extended release(part/cryst) (Klor-Con M) 20 meq PO DAILY #90 tab-caps 11/19/21 apixaban 5 mg tablet (Eliquis) 5 mg PO BID 07/07/22 fluticasone propionate 50 mcg/actuation nasal spray,suspension 50 mcg intranasal BID 07/07/22 furosemide 20 mg tablet (Lasix) 20 mg PO PRN PRN fluid 07/07/22 loratadine 10 mg tablet (Claritin) 10 mg PO DAILY 07/07/22 lorazepam 1 mg tablet 1 mg PO PRN PRN Anxiety 07/07/22 omega [id number] oil 1,000 mg (120 mg-180 mg) capsule (Fish Oil) 1 cap PO DAILY 07/07/22 oxybutynin chloride 10 mg tablet,extended release 24 hr (Ditropan XL) 15 mg PO DAILY 07/07/22 pantoprazole 40 mg tablet,delayed release 40 mg PO DAILY 07/07/22 simvastatin 20 mg tablet (Zocor) 20 mg PO DAILY 07/07/22 tizanidine 2 mg capsule 2 mg PO BID 07/07/22 azelastine 0.05 % eye drops 1 drp BOTHEYES BID 07/09/22 diltiazem HCl 60 mg tablet (Cardizem) 60 mg PO BID For fast heart beat and blood pressure #60 tabs 07/09/22 losartan 25 mg tablet (Cozaar) 25 mg PO DAILY High blood pressure #30 tabs 07/09/22 Lab/Diagnostics: Laboratory Tests 07/07/22 07/07/22 07/07/22 09:45 09:50 10:01 WBC RBC Hgb Hct MCV MCH MCHC RDW Coeff of Yara Plt Count Immature Gran % (Auto) Neut % (Auto) Lymph % (Auto) Winn % (Auto) Eos % (Auto) Baso % (Auto) Neut # (Auto) Lymph # (Auto) Winn # (Auto) Eos # (Auto) Baso # (Auto) Immature Gran # (Auto) Puncture Site Rr Base Excess 0.9 O2 Saturation 99.3 H ABG pH 7.51 H* ABG pCO2 30.0 L ABG pO2 134.0 H ABG HCO3 23.9 ABG Total CO2 24.8 H Imtiaz Test Pos Hemoglobin 1.2 Oxyhemoglobin 93.3 L Carboxyhemoglobin 4.7 H Total Hemoglobin 14.9 FiO2 % 21.0 Sodium 133.7 L Potassium 4.37 Chloride 103.0 Carbon Dioxide 24.8 Anion Gap 10.27 BUN 16.6 Creatinine 0.81 Estimated GFR (MDRD) 69.00 BUN/Creatinine Ratio 20.49 Glucose 117.3 H Lactic Acid Calcium 9.23 Total Bilirubin 0.95 AST 20.9 ALT 17.3 Alkaline Phosphatase 100.0 Troponin I < 0.012 NT-Pro-B Natriuret Pep Total Protein 7.46 Albumin 4.08 Globulin 3.38 Albumin/Globulin Ratio 1.20 TSH Free T4 D-Dimer SARS CoV-2 RNA Rapid MAIRA Negative 07/07/22 07/07/22 07/07/22 10:01 10:01 10:01 WBC 10.85 H RBC 4.79 Hgb 14.6 Hct 47.4 H MCV 99.0 MCH 30.5 MCHC 30.8 L RDW Coeff of Yara 15.2 H Plt Count 178 Immature Gran % (Auto) 0.4 Neut % (Auto) 73.9 Lymph % (Auto) 17.1 Winn % (Auto) 7.9 Eos % (Auto) 0.3 Baso % (Auto) 0.4 Neut # (Auto) 8.0 H Lymph # (Auto) 1.9 Winn # (Auto) 0.9 Eos # (Auto) 0.0 Baso # (Auto) 0.0 Immature Gran # (Auto) 0.0 Puncture Site Base Excess O2 Saturation ABG pH ABG pCO2 ABG pO2 ABG HCO3 ABG Total CO2 Imtiaz Test Hemoglobin Oxyhemoglobin Carboxyhemoglobin Total Hemoglobin FiO2 % Sodium Potassium Chloride Carbon Dioxide Anion Gap BUN Creatinine Estimated GFR (MDRD) BUN/Creatinine Ratio Glucose Lactic Acid 0.85 Calcium Total Bilirubin AST ALT Alkaline Phosphatase Troponin I NT-Pro-B Natriuret Pep Total Protein Albumin Globulin Albumin/Globulin Ratio TSH Free T4 D-Dimer 1027.69 H SARS CoV-2 RNA Rapid MAIRA 07/07/22 07/07/22 07/08/22 10:05 17:53 02:00 WBC RBC Hgb Hct MCV MCH MCHC RDW Coeff of Yara Plt Count Immature Gran % (Auto) Neut % (Auto) Lymph % (Auto) Winn % (Auto) Eos % (Auto) Baso % (Auto) Neut # (Auto) Lymph # (Auto) Winn # (Auto) Eos # (Auto) Baso # (Auto) Immature Gran # (Auto) Puncture Site Base Excess O2 Saturation ABG pH ABG pCO2 ABG pO2 ABG HCO3 ABG Total CO2 Imtiaz Test Hemoglobin Oxyhemoglobin Carboxyhemoglobin Total Hemoglobin FiO2 % Sodium Potassium Chloride Carbon Dioxide Anion Gap BUN Creatinine Estimated GFR (MDRD) BUN/Creatinine Ratio Glucose Lactic Acid Calcium Total Bilirubin AST ALT Alkaline Phosphatase Troponin I < 0.012 NT-Pro-B Natriuret Pep 2130.000 H Total Protein Albumin Globulin Albumin/Globulin Ratio TSH Free T4 1.27 D-Dimer SARS CoV-2 RNA Rapid MAIRA 07/08/22 07/08/22 07/08/22 02:00 02:05 02:05 WBC 10.01 RBC 4.42 Hgb 13.6 Hct 41.8 MCV 94.6 MCH 30.8 MCHC 32.5 RDW Coeff of Yara 15.0 H Plt Count 169 Immature Gran % (Auto) 0.5 Neut % (Auto) 69.8 Lymph % (Auto) 18.3 Winn % (Auto) 10.9 H Eos % (Auto) 0.2 Baso % (Auto) 0.3 Neut # (Auto) 7.0 H Lymph # (Auto) 1.8 Winn # (Auto) 1.1 Eos # (Auto) 0.0 Baso # (Auto) 0.0 Immature Gran # (Auto) 0.1 Puncture Site Base Excess O2 Saturation ABG pH ABG pCO2 ABG pO2 ABG HCO3 ABG Total CO2 Imtiaz Test Hemoglobin Oxyhemoglobin Carboxyhemoglobin Total Hemoglobin FiO2 % Sodium 133.4 L Potassium 3.76 Chloride 100.1 Carbon Dioxide 28.4 Anion Gap 8.66 BUN 17.3 H Creatinine 0.78 Estimated GFR (MDRD) 72.00 BUN/Creatinine Ratio 22.17 Glucose 116.5 H Lactic Acid Calcium 8.94 Total Bilirubin 1.07 AST 27.3 ALT 21.1 Alkaline Phosphatase 89.5 Troponin I < 0.012 NT-Pro-B Natriuret Pep Total Protein 6.83 Albumin 3.57 Globulin 3.26 Albumin/Globulin Ratio 1.09 TSH 1.040 Free T4 D-Dimer SARS CoV-2 RNA Rapid MAIRA 07/09/22 07/09/22 05:00 05:00 WBC 9.53 RBC 4.38 Hgb 13.1 Hct 41.8 MCV 95.4 MCH 29.9 MCHC 31.3 L RDW Coeff of Yara 15.2 H Plt Count 170 Immature Gran % (Auto) 0.6 Neut % (Auto) 63.9 Lymph % (Auto) 25.0 Winn % (Auto) 9.0 Eos % (Auto) 1.2 Baso % (Auto) 0.3 Neut # (Auto) 6.1 Lymph # (Auto) 2.4 Winn # (Auto) 0.9 Eos # (Auto) 0.1 Baso # (Auto) 0.0 Immature Gran # (Auto) 0.1 Puncture Site Base Excess O2 Saturation ABG pH ABG pCO2 ABG pO2 ABG HCO3 ABG Total CO2 Imtiaz Test Hemoglobin Oxyhemoglobin Carboxyhemoglobin Total Hemoglobin FiO2 % Sodium 133.5 L Potassium 3.97 Chloride 98.1 Carbon Dioxide 31.2 H Anion Gap 8.17 BUN 30.8 H Creatinine 1.22 Estimated GFR (MDRD) 43.00 BUN/Creatinine Ratio 25.24 Glucose 110.3 H Lactic Acid Calcium 9.00 Total Bilirubin 0.79 AST 23.4 ALT 18.7 Alkaline Phosphatase 88.6 Troponin I NT-Pro-B Natriuret Pep Total Protein 7.07 Albumin 3.64 Globulin 3.43 Albumin/Globulin Ratio 1.06 TSH Free T4 D-Dimer SARS CoV-[address] chest MPRESSION: 1. No CT evidence of acute pulmonary embolus or aortic dissection. 2. Atherosclerotic vascular calcifications present in the aortic arch and coronary arteries. Education Provided to Patient and Family: Per nursing staff Follow-ups: PCP within a week Discharge Disposition: Home Hospital Course: Admitted with COPD exac and atrial fib with RVR. Patient has had both of these before. COPD flare quickly improved and she stays on her home oxygen at 4 L/NC. She also has a home Bi-Pap device. The A-rib RVR was treated with med change and rate controlled at time of d/c, courtesy of the consultation of Dr. Shaw and staff. Plan: D/C home with med changes and planned follow-up. This discharge done with [id number] evaluation and documentation entailing 40 minutes.
--- NOTE | 2022-07-12 10:48 | CONS ---
DATE OF SERVICE: 07/09/22 CONSULT FOLLOWUP SUBJECTIVE: 77 year old white female seen on consult because of atrial fibrillation with rapid ventricular response. The patient's condition seems to have improved. The patient was seen and examined with the Nurse Practitioner. REVIEW OF SYSTEMS: CONSTITUTIONAL: No night sweats. No fatigue, malaise, lethargy. No fever or chills. HEENT: Eyes: No visual changes. No eye pain. No eye discharge. ENT: No runny nose. No epistaxis. No sinus pain. No sore throat. No odynophagia. No ear pain. No congestion. RESPIRATORY: No cough, no congestion. No hemoptysis. CARDIOVASCULAR: No angina symptoms. No CHF symptoms. No atypical chest pain for CAD. No palpitations. No shortness of breath. GASTROINTESTINAL: No abdominal pain. No nausea or vomiting. No diarrhea or constipation. No hematemesis. No hematochezia. GENITOURINARY: No urgency. No frequency. No dysuria. No hematuria. No obstructive symptoms. No discharge. No pain. No significant abnormal bleeding. MUSCULOSKELETAL: No musculoskeletal pain. No joint swelling. No arthritis. NEUROLOGICAL: No headache. No neck pain. No syncope. No seizures. No dizziness. PSYCHIATRIC: Not anxious. No depression. No suicidal thoughts. No homicidal thoughts. SKIN: No rash. No lesions. No wounds. ENDOCRINE: No unexplained weight loss. No weight gain. HEMATOLOGIC/LYMPHATIC: No anemia. No purpura. No petechiae. No prolonged or excessive bleeding. No palpable lymph nodes. PHYSICAL EXAMINATION: VITAL SIGNS: Temperature 95.8, pulse 76, respiratory rate 14, blood pressure 98/64 and pulse 92% on 2 liters. HEENT: Head normocephalic, atraumatic. Eyes: Extraocular muscles are intact. Pupils are equal, round and reactive to light and accommodation. Ears: No lesions. Nose appeared normal. Throat: No exudate or erythema. NECK: Supple. No JVD, no carotid bruit. No lymphadenopathy or thyromegaly. LUNGS: Decreased breath sounds with mild wheeze. Clear to auscultation. Percussion note normal. Chest symmetrical. HEART: S1, S2 irregular, no S3. No murmur. No cyanosis or clubbing. No ascites. Pulses: Dorsalis pedis and posterior tibial pulses +1 to +2 bilaterally. ABDOMEN: Soft. Nontender. Bowel sounds active. No CVA tenderness. No mass felt. EXTREMITIES: No edema. Full range of motion of all extremities, equal. NEUROLOGIC: No focal deficit. Cranial nerves II through XII are grossly intact. No headache, no double vision or headache. SKIN: Not dry. Intact. Turgor - normal. LYMPHATIC: No palpable lymph nodes/no lymphedema. MUSCULOSKELETAL: Normal joints with no swelling. Muscle tone is normal. LABS: Hgb 13, hct 41, WBC 9,500 normal differential ASSESSMENT: 1. Atrial fibrillation with normal ventricular response RECOMMENDATIONS: 1. Continue Cardizem 60mg twice a day 2. Continue rest of medication as before CONDITION: Seems to be improving. MTDD
--- NOTE | 2022-07-12 13:13 | CONS ---
DATE OF SERVICE: 07/08/22 CONSULT FOLLOWUP SUBJECTIVE: The patient was seen and examined on consultation. The patient's atrial fibrillation lower ventricular response 90-100 per minute. She is on Cardizem 30mg every Q 6 hourly. The patient is running systolic blood pressure close to 100. Plan is to balance systolic blood pressure with Cardizem dose so we will decrease the Losartan to 25mg and put Cardizem 60mg twice a day, continue 30mg Q 6 hours. REVIEW OF SYSTEMS: CONSTITUTIONAL: No night sweats. No fatigue, malaise, lethargy. No fever or chills. Feeling better. HEENT: Eyes: No visual changes. No eye pain. No eye discharge. ENT: No runny nose. No epistaxis. No sinus pain. No sore throat. No odynophagia. No ear pain. No congestion. RESPIRATORY: Less cough, no congestion. No hemoptysis. CARDIOVASCULAR: No angina symptoms. No CHF symptoms. No atypical chest pain for CAD. No palpitations. No shortness of breath. Pleuritic type of pain. GASTROINTESTINAL: No abdominal pain. No nausea or vomiting. No diarrhea or constipation. No hematemesis. No hematochezia. Appetite has improved. GENITOURINARY: No urgency. No frequency. No dysuria. No hematuria. No obstructive symptoms. No discharge. No pain. No significant abnormal bleeding. MUSCULOSKELETAL: No musculoskeletal pain. No joint swelling. No arthritis. NEUROLOGICAL: No headache. No neck pain. No syncope. No seizures. No dizziness. PSYCHIATRIC: Not anxious. No depression. No suicidal thoughts. No homicidal thoughts. SKIN: No rash. No lesions. No wounds. ENDOCRINE: No unexplained weight loss. No weight gain. HEMATOLOGIC/LYMPHATIC: No anemia. No purpura. No petechiae. No prolonged or excessive bleeding. No palpable lymph nodes. PHYSICAL EXAMINATION: VITAL SIGNS: Temperature 97.6, pulse 90, respiratory rate 22, blood pressure 90/62 and pulse ox 96%. HEENT: Head normocephalic, atraumatic. Eyes: Extraocular muscles are intact. Pupils are equal, round and reactive to light and accommodation. Ears: No lesions. Nose appeared normal. Throat: No exudate or erythema. NECK: Supple. No JVD, no carotid bruit. No lymphadenopathy or thyromegaly. LUNGS: Decreased breath sounds with mild wheeze. Percussion note normal. Chest symmetrical. HEART: S1, S2, no S3 Irregular. No murmur. No cyanosis or clubbing. No ascites. Pulses: Dorsalis pedis and posterior tibial pulses +1 to +2 bilaterally. ABDOMEN: Soft. Nontender. Bowel sounds active. No CVA tenderness. No mass felt. EXTREMITIES: No edema. Full range of motion of all extremities, equal. NEUROLOGIC: No focal deficit. Cranial nerves II through XII are grossly intact. No headache, no double vision or headache. SKIN: Not dry. Intact. Turgor - normal. LYMPHATIC: No palpable lymph nodes/no lymphedema. MUSCULOSKELETAL: Normal joints with no swelling. Muscle tone is normal. ASSESSMENT: 1. Acute bronchitis seems to be resolving 2. Chronic lung disease 3. Biventricular failure 4. Atrial fibrillation, now has acceptable ventricular response RECOMMENDATIONS: 1. Decrease the Losartan to 25mg 2. Increase Cardizem to 60mg twice a day 3. Coreg CONDITION: Stable. MTDD
== END 2022-07-09 12:59 | disposition home or self-care (01) | DRG 191 ==
LOC: ED 09:16 → MEDSURG A 12:03
PROVIDERS: ADMIT Family Medicine; ATTEND Emergency Medicine
DX: Z20.822 Contact with and (suspected) exposure to COVID-19; G47.33 Obstructive sleep apnea (adult) (pediatric); J44.1 Chronic obstructive pulmonary disease with (acute) exacerbation; I51.7 Cardiomegaly; Z68.43 Body mass index [BMI] 50.0-59.9, adult; I48.91 Unspecified atrial fibrillation; Z91.19 Patient's noncompliance with other medical treatment and regimen; E78.5 Hyperlipidemia, unspecified; E66.01 Morbid (severe) obesity due to excess calories; I27.81 Cor pulmonale (chronic); J44.0 Chronic obstructive pulmonary disease with (acute) lower respiratory infection; R06.02 Shortness of breath